=== PATIENT | female | born 1950 | race Caucasian/White ===

== ENCOUNTER → 2018-02-02 11:33 | Outpatient (CLI) | payer MEDICAID, SELFPAY ==
[2018-02-02 15:00] LABS: Anion Gap 6 (5-15); BUN 17 mg/dL (7-18); BUN/Creat Ratio 23.5 RATIO (10-20); Calcium,Total 8.7 mg/dL (8.5-10.1); Chloride 106 mmol/L (98-107); Cholesterol 189 mg/dL (200); Creatinine, Serum 0.72 mg/dL (0.55-1.02); EST Glomerular Filtration Rate 86 mL/min (>60); Est Glom Filt Rate - Afr Amer 104 mL/min (>60); Glucose 80 mg/dL (74-106); High Density Lipoprotein 93 mg/dL; Potassium 3.8 mmol/L (3.5-5.1); Sodium Level 140 mmol/L (136-145); Triglycerides 51 mg/dL; Very Low Density Lipoprotein 10 mg/dL (5-40)
== END ==
PROVIDERS: Family Provider Family Medicine; PCP Family Medicine; Visit Provider Family Medicine
DX: E03.9 Hypothyroidism, unspecified (principal); I10 Essential (primary) hypertension
CPT/HCPCS: 36415; 80048; 80061; 84443

== ENCOUNTER → 2018-08-06 11:08 | Outpatient (CLI) | payer MEDICARE, SELFPAY ==
[2018-08-06 14:53] LABS: Absolute Lymphocyte Count 1.11 X10^3/ul (0.83-4.51); Absolute Neutrophil Count 1.8 X10^3/uL (2.0-7.7); Basophil# 0.01 X10^3/uL; Basophil% 0.3 % (0-1); Eosinophil# 0.08 X10^3/uL; Eosinophils% 2.4 % (0-5); Hematocrit 40.4 % (37-47); Hemoglobin 12.2 g/dl (12.0-15.0); Lymphocyte # 1.11 X10^3/ul (4.0); Lymphocyte % 33.6 % (19-41); Mean Corp Hgb Conc 30.2 g/gl (32-36); Mean Corpuscular Hgb 29.6 pg (27.0-32.0); Mean Corpuscular Volume 98.1 fL (81-99); Mean Platelet Vol. 11.5 fl (6.2-12.0); Monocyte# 0.26 X10^3/uL; Monocyte% 7.9 % (0-10); Neutrophil # 1.84 X10^3/uL (2.7-7.7); Neutrophil % 55.8 % (47-70); Platelet Count 165 K/mm3 (150-450); RBC Distribution Width CV 13.3 % (11.6-14.6); RBC Distribution Width SD 47.2 fl (35.1-43.9); Red Blood Count 4.12 M/mm3 (4.2-5.4); White Blood Count 3.3 K/mm3 (4.4-11.0)
[2018-08-06 14:54] LABS: Differential Indicated SCAN CRITERIA MET; POSITIVE COUNT YES; POSITIVE DIFFERENTIAL NO; POSITIVE MORPHOLOGY YES
[2018-08-06 15:11] LABS: Platelet Estimate ADEQUATE (ADEQ)
[2018-08-06 15:12] LABS: Anion Gap 12 (5-15); BUN 11 mg/dL (7-18); BUN/Creat Ratio 15.6 RATIO (10-20); Calcium,Total 8.9 mg/dL (8.5-10.1); Chloride 105 mmol/L (98-107); Cholesterol 188 mg/dL (200); EST Glomerular Filtration Rate 88 mL/min (>60); Est Glom Filt Rate - Afr Amer 107 mL/min (>60); Free T3 2.8 pg/mL (2.18-3.98); Glucose 66 mg/dL (74-106); High Density Lipoprotein 103 mg/dL; Platelet Morphology LARGE; Potassium 4.1 mmol/L (3.5-5.1); Sodium Level 143 mmol/L (136-145); T4 Total, Thyroxin 11.6 ug/dL (4.8-13.9); Thyroid Stim Hormone (TSH) 2.86 uIU/mL (0.358-3.74); Triglycerides 83 mg/dL; Very Low Density Lipoprotein 17 mg/dL (5-40)
== END ==
PROVIDERS: Family Provider Family Medicine; PCP Family Medicine; Visit Provider Family Medicine
DX: E03.9 Hypothyroidism, unspecified (principal); I10 Essential (primary) hypertension; M06.9 Rheumatoid arthritis, unspecified
CPT/HCPCS: 36415; 80048; 80061; 84436; 84443; 84481; 85025

== ENCOUNTER → 2019-02-06 11:15 | Outpatient (CLI) | payer MEDICARE, SELFPAY ==
[2019-02-06 12:54] LABS: Anion Gap 5 (5-15); BUN 15 mg/dL (7-18); BUN/Creat Ratio 24.1 RATIO (10-20); Calcium,Total 9.3 mg/dL (8.5-10.1); Chloride 103 mmol/L (98-107); Cholesterol 183 mg/dL (200); Creatinine, Serum 0.62 mg/dL (0.55-1.02); EST Glomerular Filtration Rate 102 mL/min (>60); Est Glom Filt Rate - Afr Amer 123 mL/min (>60); Free T3 2.6 pg/mL (2.18-3.98); Glucose 79 mg/dL (74-106); High Density Lipoprotein 85 mg/dL; Sodium Level 140 mmol/L (136-145); T4 Total, Thyroxin 12.4 ug/dL (4.8-13.9); Thyroid Stim Hormone (TSH) 2.59 uIU/mL (0.358-3.74); Triglycerides 79 mg/dL; Very Low Density Lipoprotein 16 mg/dL (5-40)
== END ==
PROVIDERS: Family Provider Family Medicine; PCP Family Medicine; Visit Provider Family Medicine
DX: I10 Essential (primary) hypertension (principal); E03.9 Hypothyroidism, unspecified
CPT/HCPCS: 36415; 80048; 80061; 84436; 84443; 84481

== ENCOUNTER 2019-02-18 15:42 | Emergency (ER) | payer MEDICARE, SELFPAY ==
[2019-02-18 15:43] VITALS: BP 133/98; PULSE 101; RESP 18; TEMP 37.1; O2SAT 99; BMI 16.2
[2019-02-18 16:13] VITALS: BP 140/76; PULSE 92; RESP 21; O2SAT 100
--- NOTE | 2019-02-18 16:13 | RAD_ITS ---
STUDY: X-RAY CHEST REASON FOR EXAM: Female, 68 years old. Left-sided chest pain which increases with deep breathing and coughing. TECHNIQUE: Single AP portable view of the chest. COMPARISON: None. FINDINGS: There is hyperinflation of the lungs consistent with chronic obstructive lung disease (COPD). No focal mass or infiltrate. There is no demonstrated pleural abnormality. Normal size heart. Normal mediastinum and michael. Normal visualized pulmonary arteries. There is atherosclerotic calcification of the aortic arch with tortuosity. The thoracic spine is obscured by the mediastinum. Normal visualized ribs, clavicles, and shoulders. There is no demonstrated abnormality of the visualized soft tissue structures of the upper abdomen. RAD/Chest 1 View (Portable) IMPRESSION: COPD without acute cardiopulmonary disease. Electronically Signed: Iam Soto DO at 16:44 EDT Tel [phone], Service support ,
--- NOTE | 2019-02-18 16:13 | EKG12_ITS ---
Test Reason : CP Blood Pressure : / mmHG Vent. Rate : 098 BPM Atrial Rate : 098 BPM P-R Int : 138 ms QRS Dur : 094 ms QT Int : 356 ms P-R-T Axes : 075 -73 077 degrees QTc Int : 454 ms Normal sinus rhythm Right atrial enlargement Left axis deviation Cannot rule out Anterior infarct , age undetermined Abnormal ECG Confirmed by NORMA MONTE, JADE ([id number]), science editor JEANIE LIZARRAGA ([id number]) on 02/22/2019 6:20:42 AM Referred By: CASH/GARY Confirmed By:JADE GREEN MD
[2019-02-18] MEDS: Ketorolac 15 MG/ML Vial IV (16:33)
[2019-02-18] MEDS: Aspirin 81 MG TAB.CHEW 324 MG PO (16:33)
[2019-02-18 16:35] LABS: Absolute Neutrophil Count 8.9 X10^3/uL (2.0-7.7); Basophil# 0.01 X10^3/uL; Basophil% 0.1 % (0-1); Eosinophil# 0.03 X10^3/uL; Eosinophils% 0.3 % (0-5); Hematocrit 37.6 % (37-47); Hemoglobin 11.8 g/dl (12.0-15.0); Lymphocyte % 10.3 % (19-41); Mean Corp Hgb Conc 31.4 g/gl (32-36); Mean Corpuscular Hgb 29.4 pg (27.0-32.0); Mean Corpuscular Volume 93.5 fL (81-99); Mean Platelet Vol. 10.3 fl (6.2-12.0); Monocyte# 0.64 X10^3/uL; Neutrophil # 8.85 X10^3/uL (2.7-7.7); Neutrophil % 83.1 % (47-70); Platelet Count 177 K/mm3 (150-450); RBC Distribution Width CV 14.1 % (11.6-14.6); RBC Distribution Width SD 48.3 fl (35.1-43.9); Red Blood Count 4.02 M/mm3 (4.2-5.4); White Blood Count 10.7 K/mm3 (4.4-11.0)
[2019-02-18 16:40] LABS: POSITIVE COUNT NO; POSITIVE DIFFERENTIAL NO; POSITIVE MORPHOLOGY NO
[2019-02-18 16:48] LABS: Anion Gap 9 (5-15); BUN 19 mg/dL (7-18); Calcium,Total 8.8 mg/dL (8.5-10.1); Chloride 105 mmol/L (98-107); EST Glomerular Filtration Rate 66 mL/min (>60); Est Glom Filt Rate - Afr Amer 80 mL/min (>60); Estimated Creatinine Clearance 37.95 ml/min; Glucose 85 mg/dL (74-106); Potassium 3.7 mmol/L (3.5-5.1); Sodium Level 142 mmol/L (136-145)
--- NOTE | 2019-02-18 16:52 | CT_ITS ---
STUDY: CTA CHEST REASON FOR EXAM: Female, 68 years old. Left-sided chest pain and cough. RADIATION DOSAGE (If Supplied By Facility): CTDIvol = ( 3.41 ) mGy, DLP = ( 147.99 ) mGycm TECHNIQUE: The examination was performed with the intravenous administration of 100 IV Isovue 370. Post-processing of the angiographic images was performed, with multiplanar reformation and 3D reconstruction. Individualized dose optimization techniques were used for this CT. COMPARISON: Chest, February 18, 2019. FINDINGS: Normal enhancement of the main pulmonary artery and right and left pulmonary arteries. Normal enhancement of the bilateral peripheral pulmonary arteries. There is no demonstrated pulmonary embolism. Normal thoracic aorta and visualized great vessels. There is no demonstrated aortic dissection. Normal heart and pericardium. Nonspecific subcentimeter mediastinal lymphadenopathy. There is right hilar lymphadenopathy. Normal visualized trachea and bronchi. The lungs are hyper expanded, with flattening of the hemidiaphragms. There is diffuse emphysematous changes of the lungs. There is bilateral apical pleural scarring most marked on the left. Patchy nodular infiltrate in the posterior right upper lobe . More inferiorly bandlike density along the horizontal fissure which extends to the anterior pleural surface. There is a vague 3 mm nodular density in the right lower lobe on image 160 of series 2. There are vague linear densities laterally in the right lower lobe as well as dependent changes in the posterior costophrenic angle. There is vague linear densities in the left upper lobe at the level of the hilum with peribronchial thickening and bronchiectasis extending outward towards the anterior pleural surface. This same level there is a bandlike density extending from the hilum through the left lower lobe into the posterior lateral pleural surface. Atelectatic changes are seen in the lingula. There is no evidence of pleural effusion. The soft tissues of the chest wall appears somewhat cachectic. There are degenerative changes of thoracic spine. Normal visualized upper abdomen. CT/CTA Chest W/WO Contrast IMPRESSION: 1. No evidence of pulmonary embolus. 2. No evidence of aortic dissection or aneurysm. 3. Emphysematous changes lungs with areas of patchy nodular density bilaterally. The possibility of underlying malignancy cannot be ruled out. 4. Right hilar lymphadenopathy. There is nonspecific mediastinal lymph nodes also noted. 5. Degenerative changes on the lumbar spine. 6. Generalized cachexia. Electronically Signed: Iam Soto DO at 17:48 EDT Tel [phone], Service support ,
--- NOTE | 2019-02-18 17:49 | ED.DCSUM_ITS ---
- ER Visit Summary Date of Service: 02/18/19 Chief Complaint: Shortness of breath chest pain History of Present Illness: The patient is a 68 F with COPD presents for history of chest pain aching moderate left-sided. No fever chills she has a cough which is nonproductive. Pain is pleuritic. No radiation to her back or tearing sensation no radiation to her head neck or arms. No neurological symptoms Physical Examination: Not appear in acute distress. Moist mucous membranes, no obvious facial deformity No C-spine tenderness supple neck. Regular rate and rhythm without any obvious murmurs. Left-sided chest wall pain Coarse and slightly diminished lungs bilaterally speaking in full sentences without any obvious respiratory distress Abdomen soft and nontender no guarding or rebound Moves all extremities without any difficulty or pain. Skin does not show any obvious rashes or lesions, no trauma. Alert oriented ?3 with no gross focal deficit Emergency Department Course and Treatment: Patient has a normal work-up including PE, she has low risk for cardiac, she has nodules on CT, I will refer to pulmonology. I will place her on steroids Disposition: Discharge stable condition Impression: Pleuritic chest pain This note was generated with [employer] dictation software. It may contain incorrect words, spelling, and punctuation that were not noted in review of the chart prior to signing ED Disposition - Plan for ED Patient: Disposition: Home or Assisted Living Instructions: ED Chest Pain Pleurisy Prescriptions: Hydrocodone Bitart/Apap 5-325 [[place] 5MG-325MG] 1 tab PO Q4H PRN PRN 2 Days #10 tab PRN Reason: Pain Prednisone 40 mg PO DAILY #10 tab Referrals: Rob Corona MD [STAFF PHYSICIAN] - 1 Week
[2019-02-18 17:50] VITALS: BP 131/87; PULSE 87; RESP 32; O2SAT 100
[2019-02-18 18:19] VITALS: BP 129/75; PULSE 88; RESP 19; O2SAT 96
--- NOTE | 2019-02-18 18:19 | ED.RN ---
IV DC'ED, CATHETER INTACT, SMALL GAUZE DRESSING PLACED. DISCHARGE INSTRUCTIONS GIVEN TO AND REVIEWED WITH PATIENT, PATIENT DENIES QUESTIONS OR CONCERNS AND VOICES UNDERSTANDING OF DISCHARGE INSTRUCTIONS. PT AMBULATES OUT OF ROOM WITHOUT DIFFICULTY.
== END 2019-02-18 18:21 | disposition home or self-care (01) ==
PROVIDERS: Emergency Provider Emergency Medicine; Family Provider Family Medicine; PCP Family Medicine
DX: R07.89 Other chest pain (principal); J44.9 Chronic obstructive pulmonary disease, unspecified; Z79.899 Other long term (current) drug therapy
CPT/HCPCS: 71045; 71275; 80048; 84484; 85025; 93005; 96374; 99285; Q9967

== ENCOUNTER → 2019-03-20 09:45 | Outpatient (CLI) | payer MEDICARE, SELFPAY ==
[2019-03-07 13:18] VITALS: BMI 14.9
--- NOTE | 2019-03-20 12:45 | PFT ---
INTRODUCTION: The patient is a 68-year-old female that presents for pulmonary function studies secondary to a diagnosis of bronchitis. Respiratory therapy reports good patient effort. Bronchodilators were used during testing. INTERPRETATION: Forced expiration spirometry demonstrates no evidence of a large airways obstructive ventilatory defect. There was no significant response to aerosolized bronchodilators, based upon strict ATS criteria. Spirograms plateau normally. Body plethysmography was performed and reveals lung volumes to be within normal limits. Diffusing capacity by single breath CO is also within normal limits at 83% of predicted. IMPRESSION: Normal spirometry, lung volumes and diffusing capacity.
== END ==
PROVIDERS: Family Provider Family Medicine; PCP Family Medicine; Referring Provider Internal Medicine Critical Care Medicine; Visit Provider Internal Medicine Critical Care Medicine
DX: J47.9 Bronchiectasis, uncomplicated (principal)
CPT/HCPCS: 94060; 94726; 94729

== ENCOUNTER → 2019-04-10 11:00 | Outpatient (CLI) | payer MEDICARE, SELFPAY ==
[2019-04-10 10:06] VITALS: BMI 15.5
== END ==
PROVIDERS: Family Provider Family Medicine; PCP Family Medicine; Referring Provider Nurse Practitioner Acute Care; Visit Provider Nurse Practitioner Acute Care
DX: M06.9 Rheumatoid arthritis, unspecified (principal)
CPT/HCPCS: 94667

== ENCOUNTER → 2019-04-12 16:53 | Outpatient (CLI) | payer MEDICARE, SELFPAY ==
[2019-03-07 13:18] VITALS: BMI 14.9
[2019-04-10 10:06] VITALS: BMI 15.5
--- NOTE | 2019-04-12 16:55 | CT_ITS ---
HISTORY:LUNG NODULE, RECENT PNEUMONIA DECEMBER 2018. HILAR ADENOPATHY LUNG NODULE, RECENT PNEUMONIA DECEMBER 2018. HILAR ADENOPATHY CT Chest W/ Contrast TECHNIQUE: Helically acquired images were obtained of the chest following 70 Isovue 300 IV contrast. A radiation dose optimization technique was used for this scan. COMPARISON: CTA of the chest obtained on February 18, 2019 FINDINGS: # of images incl. paperwork: [id number] PULMONARY ARTERIES: There is no central pulmonary embolism although this study was not performed with the pulmonary embolism protocol. AORTA/AORTIC ARCH: Unremarkable. HEART/PERICARDIUM: Unremarkable. ADENOPATHY: There are subcentimeter precarinal and carinal lymph nodes that were present on the prior study and similar. Right hilar adenopathy similar to prior study. Borderline left hilar adenopathy increased when compared to prior study. No axillary adenopathy THYROID: The right lobe of the thyroid is enlarged when compared to the left similar prior study LUNG PARENCHYMA: Diffuse emphysematous changes of the lungs are again noted. Bilateral apical scarring greater on the left unchanged from prior study. Pleural thickening is again noted along the right minor fissure but slightly improved when compared to prior study. Minimal thickening is also seen along the major fissure on the right which is increased on today's study measuring approximately 1.3 cm. This is seen on axial image 45 series 2 There is atelectasis seen within the right middle lobe as well as the lingula. The nodularity that was seen in the right lower lobe on the prior study is increased on today's study. This may represent focal atelectasis or consolidation. This is seen best on axial image 67 series 2. There is also increased atelectasis/infiltrate seen within the anterior aspect of the lingula and inferior anterior upper lobe seen on axial image 80 series 2 which has increased when compared to prior study. Just posterior to this area on the same image there is a linear band of thickening and nodularity that was also not seen on the prior study seen extending from 76-89 series 2 . Minimal nodularity pleural-based seen at the superior segment of the right lower lobe in sagittal image 90 series 601 also not seen on the prior study. Patchy infiltrate is seen within the left lower lobe not seen on the prior study on axial image 109 series 2 and atelectasis in the right lower lobe PLEURAL EFFUSION: Unremarkable. PNEUMOTHORAX: Unremarkable. UPPER ABDOMEN: Unremarkable. OSSEOUS STRUCTURES: No acute osseous abnormality CT/Chest WITH Contrast IMPRESSION: Subcentimeter mediastinal lymph nodes persist. Right hilar adenopathy is similar. There are is also subcentimeter left hilar lymph node increased from prior study There is atelectasis in the right middle lobe as well as the lingula. The nodular density seen within the right lower lobe on the prior study is increased in size on today's study and may represent focal atelectasis or consolidation. Focal atelectasis or infiltrate are also seen within the anterior aspect of the lingula and inferior anterior upper lobe as well as a linear band of thickening and nodularity seen within the left lingula that has increased when compared to prior study. There is minimal nodularity there is pleural-based seen at the superior segment of the right lower lobe not seen on the prior study. Patchy infiltrate left lower lobe also not seen on the prior study with atelectasis in the right lower lobe Consider PET/CT for further evaluation if clinically indicated Emphysematous changes as discussed Individualized dose optimization techniques were used for this CT. at 2305 Reported and signed by: Karen Elliott DO Electronically Signed: Karen Elliott DO at 23:04 EDT Tel , Service support ,
[2019-04-12 17:20] LABS: CREATININE FINGERSTICK 0.8 mg/dL (0.55-1.02); EGFR FINGERSTICK > 60.0000 mL/min (>60)
== END ==
PROVIDERS: Family Provider Family Medicine; PCP Family Medicine; Referring Provider Internal Medicine Critical Care Medicine; Visit Provider Internal Medicine Critical Care Medicine
DX: R91.1 Solitary pulmonary nodule (principal); R93.89 Abnormal findings on diagnostic imaging of other specified body structures
CPT/HCPCS: 71260; Q9967

== ENCOUNTER → 2019-05-29 14:58 | Outpatient (CLI) | payer MEDICARE, SELFPAY ==
[2019-04-10 10:06] VITALS: BMI 15.5
[2019-05-29 17:28] LABS: Absolute Lymphocyte Count 1.16 X10^3/uL (0.83-4.51); Absolute Neutrophil Count 9.5 X10^3/uL (2.0-7.7); Basophil# 0.03 X10^3/uL; Basophil% 0.3 % (0-1); Eosinophil# 0.04 X10^3/uL; Eosinophils% 0.4 % (0-5); Hematocrit 39.7 % (37-47); Hemoglobin 11.7 g/dL (12.0-15.0); Lymphocyte # 1.16 X10^3/ul (4.0); Lymphocyte % 10.2 % (19-41); Mean Corp Hgb Conc 29.5 g/dL (32-36); Mean Corpuscular Hgb 26.5 pg (27.0-32.0); Monocyte# 0.65 X10^3/uL; Monocyte% 5.7 % (0-10); NRBC Flagged by Analyzer 0 % (0-5); Neutrophil # 9.51 X10^3/uL (2.7-7.7); Neutrophil % 83.1 % (47-70); Platelet Count 264 K/mm3 (150-450); RBC Distribution Width CV 13.7 % (11.6-14.6); RBC Distribution Width SD 45.6 fl (35.1-43.9); Red Blood Count 4.41 M/mm3 (4.2-5.4); White Blood Count 11.4 K/mm3 (4.4-11.0)
[2019-05-29 17:42] LABS: Erythrocyte Sedimentation Rate 75 mm/hr (0-30)
[2019-05-29 17:52] LABS: ALB/GLOB Ratio 0.7 RATIO (0.9-2.4); AST(SGOT) 24 U/L (15-37); Alanine Aminotransfer ALT/SGPT 18 U/L (13-56); Albumin, Serum 3.3 g/dL (3.2-5.0); Alkaline Phosphatase 136 U/L (45-117); Anion Gap 9 (5-15); BUN 16 mg/dL (7-18); BUN/Creat Ratio 29.1 RATIO (10-20); Calcium,Total 9.3 mg/dL (8.5-10.1); Chloride 105 mmol/L (98-107); Creatinine, Serum 0.55 mg/dL (0.55-1.02); EST Glomerular Filtration Rate 118 mL/min (>60); Est Glom Filt Rate - Afr Amer 142 mL/min (>60); Globulin 4.6 g/dL (2.2-4.2); Glucose 47 mg/dL (74-106); Potassium 3.8 mmol/L (3.5-5.1); Protein, Total 7.9 g/dL (6.4-8.2); Rheumatoid Factor < 10.0 IU/mL (<15); Sodium Level 141 mmol/L (136-145)
[2019-05-30 12:57] LABS: Hepatitis B Surface Antibody Non-Reactive; Hepatitis B Surface Antigen Non-Reactive (Nonreactive); Hepatitis C Antibody Non-Reactive (Nonreactive)
[2019-06-03 13:34] LABS: ANTINUCLEAR ANTIBODIES DIRECT Negative (Negative)
[2019-06-05 13:00] LABS: CCP IgG Antibodies 10 units (0-19); HLA B27 Negative (.); Hepatitis B Core AB IgM Negative (Negative)
== END ==
PROVIDERS: Family Provider Family Medicine; PCP Family Medicine; Referring Provider Family Medicine; Visit Provider Internal Medicine Rheumatology
DX: M06.4 Inflammatory polyarthropathy (principal); M79.7 Fibromyalgia; M15.9 Polyosteoarthritis, unspecified; Q66.7 Congenital pes cavus
CPT/HCPCS: 36415; 80053; 81374; 85025; 85652; 86038; 86140; 86200; 86431; 86705; 86706; 86803; 87340

== ENCOUNTER → 2019-05-30 09:56 | Outpatient (CLI) | payer MEDICARE, SELFPAY ==
[2019-04-10 10:06] VITALS: BMI 15.5
--- NOTE | 2019-05-30 09:59 | RAD_ITS ---
STUDY: X-RAY - LEFT HAND REASON FOR EXAM: Female, 68 years old. Inflammatory polyarthropathy TECHNIQUE: 3 view(s) of the hand. COMPARISON: None. FINDINGS: Generalized narrowing of the radiocarpal joint without erosive changes. Normal distal radioulnar joint. Normal visualized carpal bones. There is degenerative joint disease of the scaphotrapezium / trapezoid articulation. The remainder of the carpal articulations are normal. There is degenerative arthrosis of the carpometacarpal articulation of the thumb with lateral subluxation of the first metacarpus. Generalized narrowing of the second through the fifth carpometacarpal joints. Some degenerative cyst formation. Normal metacarpi. There is degenerative arthrosis of the metacarpophalangeal (MCP) joints. There is degenerative arthrosis of the interphalangeal joint of the thumb with articular joint space narrowing. Normal proximal and distal phalanges of the thumb. There is degenerative arthrosis of the metacarpophalangeal (MCP) joints. Ankylosis of the proximal interphalangeal joints of the fifth and fourth fingers. Ankylosis of the distal interphalangeal joints of the second and third fingers. Extreme narrowing and marginal osteophytosis of the interphalangeal joint of the thumb, the distal interphalangeal joints of the fifth and fourth fingers and the proximal interphalangeal joints of the second and third fingers. Generalized prominence of the soft tissues primarily around the interphalangeal joints. RAD/Hand Min 3 Views IMPRESSION: Primarily degenerative joint features of the radiocarpal joint, scaphoid trapezium/trapezoid articulation, carpometacarpal joints, metacarpophalangeal joints and interphalangeal joints. Most severely affected joints are the interphalangeal joints noting ankylosis of the proximal interphalangeal joints of the fourth and fifth fingers and the distal interphalangeal joints of the second and third fingers. Extreme narrowing and marginal changes of the remaining interphalangeal joints. Severe degenerative arthrosis of the first carpometacarpal joint with mild subluxation. Electronically Signed: Ceci Ceja MD at 23:58 EDT , Service support ,
--- NOTE | 2019-05-30 09:59 | RAD_ITS ---
STUDY: X-RAY - PELVIS REASON FOR EXAM: Female, 68 years old. Inflammatory polyarthropathy. TECHNIQUE: One view of the pelvis was obtained. COMPARISON: None. FINDINGS: There is a non-specific bowel gas pattern. Normal visualized soft tissue structures. There are degenerative changes of the lumbar spine. Normal bilateral iliac wings, sacroiliac joints and visualized sacrum. Normal visualized bilateral superior and inferior pubic rami. Normal pubic symphysis. Normal ischial tuberosities. Normal visualized right femoral head. Normal right acetabulum. There is mild articular joint space narrowing of the right hip. Normal visualized left femoral head. Normal left acetabulum. There is mild articular joint space narrowing of the left hip. RAD/Pelvis 1 or 2 Views IMPRESSION: Mild degenerative changes bilateral hips. There is no acute fracture or dislocation. Electronically Signed: Iam Soto DO at 21:08 EDT Tel [phone], Service support ,
--- NOTE | 2019-05-30 09:59 | RAD_ITS ---
STUDY: X-RAY - RIGHT HAND REASON FOR EXAM: Female, 68 years old. Inflammatory polyarthropathy. TECHNIQUE: 3 view(s) of the hand. COMPARISON: None. FINDINGS: There is joint space narrowing of the radiocarpal articulation consistent with degenerative arthrosis. Normal distal radioulnar joint. Normal visualized carpal bones. There is degenerative joint disease of the scaphotrapezium / trapezoid articulation. The remainder of the carpal articulations are normal. There is degenerative arthrosis of the carpometacarpal (CMC) articulation of the thumb. Normal second through fifth carpometacarpal joints. Normal metacarpi. There is degenerative arthrosis of the first metacarpophalangeal (MCP) joint. There is degenerative arthrosis of the interphalangeal joint of the thumb with articular joint space narrowing. Normal proximal and distal phalanges of the thumb. Normal metacarpophalangeal joints of the second through fifth fingers. There is diffuse articular joint space narrowing of the proximal and distal interphalangeal joints of the second through fifth fingers. There is fusion of the second proximal interphalangeal joint. There is marked rotated to be erosive changes at the remainder of the interphalangeal joint. Normal phalanges of the second through fifth fingers. There is soft tissue swelling about the joints. RAD/Hand Min 3 Views IMPRESSION: Arthritic changes the right hand as described above. Electronically Signed: Iam Soto DO at 21:07 EDT Tel [phone], Service support ,
== END ==
PROVIDERS: Family Provider Family Medicine; PCP Family Medicine; Referring Provider Internal Medicine Rheumatology; Visit Provider Internal Medicine Rheumatology
DX: M06.4 Inflammatory polyarthropathy (principal); M19.042 Primary osteoarthritis, left hand; M19.041 Primary osteoarthritis, right hand; M79.7 Fibromyalgia; K21.9 Gastro-esophageal reflux disease without esophagitis; Q66.7 Congenital pes cavus; I10 Essential (primary) hypertension; E03.9 Hypothyroidism, unspecified; G43.909 Migraine, unspecified, not intractable, without status migrainosus
CPT/HCPCS: 72170; 73130

== ENCOUNTER → 2019-08-29 11:50 | Outpatient (CLI) | payer MEDICARE, SELFPAY ==
[2019-07-17 10:06] VITALS: BMI 15.5
[2019-08-29 14:12] LABS: Absolute Neutrophil Count 4.5 X10^3/uL (2.0-7.7); Basophil# 0.01 X10^3/uL; Basophil% 0.2 % (0-1); Eosinophil# 0.03 X10^3/uL; Eosinophils% 0.5 % (0-5); Hematocrit 37.5 % (37-47); Hemoglobin 11.3 g/dL (12.0-15.0); Lymphocyte % 15.4 % (19-41); Mean Corp Hgb Conc 30.1 g/dL (32-36); Mean Corpuscular Hgb 27.6 pg (27.0-32.0); Mean Corpuscular Volume 91.7 fL (81-99); Monocyte# 0.42 X10^3/uL; Monocyte% 7.2 % (0-10); NRBC Flagged by Analyzer 0 % (0-5); Neutrophil # 4.46 X10^3/uL (2.7-7.7); Neutrophil % 76.4 % (47-70); Platelet Count 307 K/mm3 (150-450); RBC Distribution Width CV 14.8 % (11.6-14.6); RBC Distribution Width SD 49.7 fl (35.1-43.9); Red Blood Count 4.09 M/mm3 (4.2-5.4); White Blood Count 5.8 K/mm3 (4.4-11.0)
[2019-08-29 14:35] LABS: ALB/GLOB Ratio 0.6 RATIO (0.9-2.4); AST(SGOT) 18 U/L (15-37); Alanine Aminotransfer ALT/SGPT 20 U/L (13-56); Albumin, Serum 3.1 g/dL (3.2-5.0); Alkaline Phosphatase 113 U/L (45-117); Anion Gap 5 (5-15); BUN 16 mg/dL (7-18); BUN/Creat Ratio 27.8 RATIO (10-20); Calcium,Total 9.1 mg/dL (8.5-10.1); Chloride 104 mmol/L (98-107); Creatinine, Serum 0.58 mg/dL (0.55-1.02); EST Glomerular Filtration Rate 111 mL/min (>60); Est Glom Filt Rate - Afr Amer 135 mL/min (>60); Globulin 4.8 g/dL (2.2-4.2); Glucose 88 mg/dL (74-106); Potassium 3.4 mmol/L (3.5-5.1); Protein, Total 7.9 g/dL (6.4-8.2); Sodium Level 141 mmol/L (136-145)
== END ==
PROVIDERS: Family Provider Family Medicine; PCP Family Medicine; Referring Provider Internal Medicine Rheumatology; Visit Provider Internal Medicine Rheumatology
DX: M06.4 Inflammatory polyarthropathy (principal); M79.7 Fibromyalgia; M15.9 Polyosteoarthritis, unspecified; Q66.70 Congenital pes cavus, unspecified foot; Z79.899 Other long term (current) drug therapy
CPT/HCPCS: 36415; 80053; 85025

== ENCOUNTER → 2019-09-16 13:30 | Outpatient (CLI) | payer MEDICARE, SELFPAY ==
[2019-07-17 10:06] VITALS: BMI 15.5
[2019-09-16 17:15] LABS: Anion Gap 5 (5-15); BUN 9 mg/dL (7-18); BUN/Creat Ratio 15.1 RATIO (10-20); Chloride 104 mmol/L (98-107); EST Glomerular Filtration Rate 107 mL/min (>60); Est Glom Filt Rate - Afr Amer 130 mL/min (>60); Glucose 68 mg/dL (74-106); Potassium 3.7 mmol/L (3.5-5.1); Sodium Level 140 mmol/L (136-145); Thyroid Stim Hormone (TSH) 2.35 uIU/mL (0.358-3.74)
== END ==
PROVIDERS: Family Provider Family Medicine; PCP Family Medicine; Referring Provider Family Medicine; Visit Provider Family Medicine
DX: E03.9 Hypothyroidism, unspecified (principal); I10 Essential (primary) hypertension
CPT/HCPCS: 36415; 80048; 84443

== ENCOUNTER → 2019-12-06 14:58 | Outpatient (CLI) | payer MEDICARE, SELFPAY ==
[2019-07-17 10:06] VITALS: BMI 15.5
[2019-12-06 17:43] LABS: ALB/GLOB Ratio 0.8 RATIO (0.9-2.4); AST(SGOT) 18 U/L (15-37); Absolute Lymphocyte Count 1.45 X10^3/uL (0.83-4.51); Absolute Neutrophil Count 4.7 X10^3/uL (2.0-7.7); Alanine Aminotransfer ALT/SGPT 17 U/L (13-56); Albumin, Serum 3.8 g/dL (3.2-5.0); Alkaline Phosphatase 116 U/L (45-117); Anion Gap 6 (5-15); BUN 14 mg/dL (7-18); BUN/Creat Ratio 20.8 RATIO (10-20); Basophil# 0.02 X10^3/uL; Basophil% 0.3 % (0-1); Chloride 102 mmol/L (98-107); Creatinine, Serum 0.67 mg/dL (0.55-1.02); EST Glomerular Filtration Rate 93 mL/min (>60); Eosinophil# 0.06 X10^3/uL; Eosinophils% 0.9 % (0-5); Est Glom Filt Rate - Afr Amer 112 mL/min (>60); Globulin 4.6 g/dL (2.2-4.2); Glucose 82 mg/dL (74-106); Hemoglobin 12.3 g/dL (12.0-15.0); Lymphocyte # 1.45 X10^3/ul (4.0); Lymphocyte % 21.5 % (19-41); Mean Corpuscular Hgb 28.9 pg (27.0-32.0); Mean Corpuscular Volume 96.2 fL (81-99); Mean Platelet Vol. 10.9 fl (6.2-12.0); Monocyte# 0.52 X10^3/uL; Monocyte% 7.7 % (0-10); NRBC Flagged by Analyzer 0 % (0-5); Neutrophil # 4.69 X10^3/uL (2.7-7.7); Neutrophil % 69.5 % (47-70); Platelet Count 201 K/mm3 (150-450); Potassium 3.5 mmol/L (3.5-5.1); Protein, Total 8.4 g/dL (6.4-8.2); RBC Distribution Width CV 14.4 % (11.6-14.6); RBC Distribution Width SD 50.1 fl (35.1-43.9); Red Blood Count 4.26 M/mm3 (4.2-5.4); Sodium Level 138 mmol/L (136-145); White Blood Count 6.8 K/mm3 (4.4-11.0)
== END ==
PROVIDERS: PCP Family Medicine; Referring Provider Internal Medicine Rheumatology; Visit Provider Internal Medicine Rheumatology
DX: M06.4 Inflammatory polyarthropathy (principal); M79.7 Fibromyalgia; M15.9 Polyosteoarthritis, unspecified; Q66.70 Congenital pes cavus, unspecified foot; K21.9 Gastro-esophageal reflux disease without esophagitis; I10 Essential (primary) hypertension; E03.9 Hypothyroidism, unspecified; G43.909 Migraine, unspecified, not intractable, without status migrainosus; M72.0 Palmar fascial fibromatosis [Dupuytren]; Z79.899 Other long term (current) drug therapy
CPT/HCPCS: 36415; 80053; 85025

== ENCOUNTER → 2020-02-19 11:11 | Outpatient (CLI) | payer MEDICARE, SELFPAY ==
[2019-07-17 10:06] VITALS: BMI 15.5
[2020-02-19 12:42] LABS: Absolute Lymphocyte Count 1.13 X10^3/uL (0.83-4.51); Absolute Neutrophil Count 2.9 X10^3/uL (2.0-7.7); Basophil# 0.02 X10^3/uL; Basophil% 0.5 % (0-1); Eosinophil# 0.06 X10^3/uL; Eosinophils% 1.4 % (0-5); Hematocrit 39.8 % (37-47); Hemoglobin 12.2 g/dL (12.0-15.0); Lymphocyte # 1.13 X10^3/ul (4.0); Lymphocyte % 25.7 % (19-41); Mean Corp Hgb Conc 30.7 g/dL (32-36); Mean Corpuscular Hgb 29.3 pg (27.0-32.0); Mean Corpuscular Volume 95.7 fL (81-99); Mean Platelet Vol. 10.5 fl (6.2-12.0); Monocyte% 6.8 % (0-10); NRBC Flagged by Analyzer 0 % (0-5); Neutrophil # 2.87 X10^3/uL (2.7-7.7); Neutrophil % 65.4 % (47-70); Platelet Count 220 K/mm3 (150-450); RBC Distribution Width CV 14.4 % (11.6-14.6); RBC Distribution Width SD 49.5 fl (35.1-43.9); Red Blood Count 4.16 M/mm3 (4.2-5.4); White Blood Count 4.4 K/mm3 (4.4-11.0)
[2020-02-19 13:11] LABS: ALB/GLOB Ratio 0.8 RATIO (0.9-2.4); AST(SGOT) 15 U/L (15-37); Alanine Aminotransfer ALT/SGPT 17 U/L (13-56); Albumin, Serum 3.4 g/dL (3.2-5.0); Alkaline Phosphatase 110 U/L (45-117); Anion Gap 6 (5-15); BUN 14 mg/dL (7-18); BUN/Creat Ratio 23.9 RATIO (10-20); Chloride 102 mmol/L (98-107); Creatinine, Serum 0.58 mg/dL (0.55-1.02); EST Glomerular Filtration Rate 109 mL/min (>60); Est Glom Filt Rate - Afr Amer 132 mL/min (>60); Globulin 4.5 g/dL (2.2-4.2); Glucose 71 mg/dL (74-106); Potassium 3.6 mmol/L (3.5-5.1); Protein, Total 7.9 g/dL (6.4-8.2); Sodium Level 140 mmol/L (136-145)
== END ==
PROVIDERS: PCP Family Medicine; Referring Provider Internal Medicine Rheumatology; Visit Provider Internal Medicine Rheumatology
DX: M06.4 Inflammatory polyarthropathy (principal); M79.7 Fibromyalgia; M15.9 Polyosteoarthritis, unspecified; Q66.70 Congenital pes cavus, unspecified foot; K21.9 Gastro-esophageal reflux disease without esophagitis; I10 Essential (primary) hypertension; E03.9 Hypothyroidism, unspecified; G43.909 Migraine, unspecified, not intractable, without status migrainosus; M72.0 Palmar fascial fibromatosis [Dupuytren]; Z79.899 Other long term (current) drug therapy
CPT/HCPCS: 36415; 80053; 85025

== ENCOUNTER → 2020-03-11 11:55 | Outpatient (CLI) | payer MEDICARE, SELFPAY ==
[2019-07-17 10:06] VITALS: BMI 15.5
[2020-03-11 16:29] LABS: Free T3 2.6 pg/mL (2.18-3.98); T4 Total, Thyroxin 11.7 ug/dL (4.8-13.9); Thyroid Stim Hormone (TSH) 3.74 uIU/mL (0.358-3.74)
== END ==
PROVIDERS: PCP Family Medicine; Visit Provider Family Medicine
DX: E03.9 Hypothyroidism, unspecified (principal)
CPT/HCPCS: 36415; 84436; 84443; 84481

== ENCOUNTER 2020-04-11 11:14 | Emergency (ER) | payer MEDICARE, SELFPAY ==
[2019-07-17 10:06] VITALS: BMI 15.5
[2020-04-11 11:15] VITALS: BP 126/85; PULSE 94; PULSE 98; RESP 17; TEMP 37; O2SAT 95; O2SAT 97; BMI 15.8
--- NOTE | 2020-04-11 11:42 | ED.VISSUMM ---
- ER Visit Summary Date of Service: 04/11/20 Chief Complaint: Cough, shortness of breath, and right-sided chest pain History of Present Illness: The patient is a 69 F who presents with cough, shortness of breath, and right-sided chest pain that is been constant for the past 6 days. Patient states her pain became worse last night. Patient states it is localized to the right lower chest. Patient states it is worse with cough and deep breathing. Patient describes as aching. Patient states it feels similar to prior episodes of pneumonia. Patient states she is coughing up some yellow sputum. Patient denies any fevers or chills. Physical Examination: Vital signs are stable. Patient is afebrile. Patient is in no acute distress. Oral mucosa is pink and moist. Neck is supple. Trachea is midline. There is no JVD. Heart was regular rate and rhythm. Lungs were diminished bilaterally. There are few rhonchi in the right base. Abdomen is soft. Bowel sounds are normal. There is no tenderness. Cranial nerves II through XII are intact. There are no focal motor or sensory deficits noted. Extremities are intact. There is no calf tenderness or edema. Test Results: CBC and comprehensive metabolic profile within normal limits. Chest x-ray shows patchy infiltrates worse in the right lower lung. There are also COPD changes. These were interpreted by the radiologist and reviewed by myself. Emergency Department Course and Treatment: Patient was started on Levaquin. Patient was given her first dose here. On reevaluation the patient's son states that his sister is a nurse and was exposed to a COVID patient. Because of this, a COVID swab was obtained and was sent out for testing. Patient was instructed to follow-up with her primary care physician in 5 to 7 days. Patient understood and was agreeable with the plan. All questions were answered. Disposition: Discharge home Impression: Right lower lobe pneumonia This note was generated with [employer] dictation software. It may contain incorrect words, spelling, and punctuation that were not noted in review of the chart prior to signing ED Disposition - Plan for ED Patient: Disposition: Home or Assisted Living Diagnosis: Right lower lobe pneumonia Instructions: ED PNEUMONITIS Adult Prescriptions: Levofloxacin [Levaquin] 750 mg PO DAILY #6 tab Transmission Status: Pending to [id number] Referrals: Bobby Duckworth MD [Primary Care Provider] - 5-7 Days
--- NOTE | 2020-04-11 11:55 | RAD_ITS ---
STUDY: X-RAY CHEST REASON FOR EXAM: Female, 69 years old. Cough, SOB, loss of taste and smell, right sided chest wall pain TECHNIQUE: Single AP portable view of the chest. COMPARISON: 02-18-2019 FINDINGS: Patchy right mid and lower lung interstitial infiltrates more prominent on the right side. There are atelectatic changes in the region and scarring. The lungs are hyperinflated with COPD changes. There is no demonstrated pleural abnormality. Normal size heart. Normal mediastinum and michael. Normal visualized pulmonary arteries. Normal visualized aortic arch and descending thoracic aorta. Normal visualized thoracic spine. There are degenerative changes in the right shoulder. There is no demonstrated abnormality of the visualized soft tissue structures of the upper abdomen. RAD/Chest 1 View (Portable) IMPRESSION: 1. Patchy infiltrates worse in the right lower lung. Interstitial or viral pneumonitis cannot be excluded. 2. COPD changes and scarring. Electronically Signed: Navid Clemente MD at 12:27 EDT Tel , Service support ,
[2020-04-11 12:13] LABS: Absolute Lymphocyte Count 0.56 X10^3/uL (0.83-4.51); Absolute Neutrophil Count 12.3 X10^3/uL (2.0-7.7); Basophil# 0.02 X10^3/uL; Basophil% 0.1 % (0-1); Eosinophil# 0.01 X10^3/uL; Eosinophils% 0.1 % (0-5); Hematocrit 40.5 % (37-47); Hemoglobin 12.5 g/dL (12.0-15.0); Lymphocyte # 0.56 X10^3/ul (4.0); Lymphocyte % 4.1 % (19-41); Mean Corp Hgb Conc 30.9 g/dL (32-36); Mean Corpuscular Hgb 29.3 pg (27.0-32.0); Mean Corpuscular Volume 95.1 fL (81-99); Mean Platelet Vol. 10.2 fl (6.2-12.0); Monocyte# 0.82 X10^3/uL; NRBC Flagged by Analyzer 0 % (0-5); Neutrophil # 12.32 X10^3/uL (2.7-7.7); Neutrophil % 89.4 % (47-70); POSITIVE DIFFERENTIAL YES; Platelet Count 203 K/mm3 (150-450); RBC Distribution Width CV 14.4 % (11.6-14.6); RBC Distribution Width SD 49.6 fl (35.1-43.9); Red Blood Count 4.26 M/mm3 (4.2-5.4); White Blood Count 13.8 K/mm3 (4.4-11.0)
[2020-04-11 12:14] LABS: Differential Indicated SCAN CRITERIA MET
[2020-04-11 12:21] LABS: ALB/GLOB Ratio 0.7 RATIO (0.9-2.4); AST(SGOT) 20 U/L (15-37); Alanine Aminotransfer ALT/SGPT 17 U/L (13-56); Albumin, Serum 3.4 g/dL (3.2-5.0); Alkaline Phosphatase 113 U/L (45-117); Anion Gap 5 (5-15); BUN 8 mg/dL (7-18); BUN/Creat Ratio 12.7 RATIO (10-20); Calcium,Total 8.9 mg/dL (8.5-10.1); Chloride 101 mmol/L (98-107); Creatinine, Serum 0.63 mg/dL (0.55-1.02); EST Glomerular Filtration Rate 100 mL/min (>60); Est Glom Filt Rate - Afr Amer 122 mL/min (>60); Estimated Creatinine Clearance 32.83 ml/min; Globulin 4.9 g/dL (2.2-4.2); Glucose 90 mg/dL (74-106); Potassium 4.4 mmol/L (3.5-5.1); Protein, Total 8.3 g/dL (6.4-8.2); Sodium Level 137 mmol/L (136-145)
[2020-04-11 12:55] LABS: Hypochromasia RARE; Platelet Estimate ADEQUATE (ADEQ)
[2020-04-11 13:37] VITALS: BP 128/64; PULSE 96; RESP 18; O2SAT 96
[2020-04-11] MEDS: levoFLOXacin 750 MG Tablet PO (13:37)
== END 2020-04-11 13:49 | disposition home or self-care (01) ==
PROVIDERS: Emergency Provider Emergency Medicine; PCP Family Medicine
DX: J44.0 Chronic obstructive pulmonary disease with (acute) lower respiratory infection (principal); J18.9 Pneumonia, unspecified organism; E03.9 Hypothyroidism, unspecified; Z87.01 Personal history of pneumonia (recurrent); Z20.828 Contact with and (suspected) exposure to other viral communicable diseases
CPT/HCPCS: 71045; 80053; 85025; 87635; 94799; 99285; A4216; U0003

== ENCOUNTER → 2020-05-27 14:26 | Outpatient (CLI) | payer MEDICARE, SELFPAY ==
[2020-05-27 19:02] LABS: Absolute Lymphocyte Count 1.49 X10^3/uL (0.83-4.51); Absolute Neutrophil Count 2.6 X10^3/uL (2.0-7.7); Basophil# 0.03 X10^3/uL; Basophil% 0.6 % (0-1); Eosinophils% 2.1 % (0-5); Hematocrit 40.4 % (37-47); Hemoglobin 12.3 g/dL (12.0-15.0); Lymphocyte # 1.49 X10^3/ul (4.0); Mean Corp Hgb Conc 30.4 g/dL (32-36); Mean Corpuscular Hgb 28.8 pg (27.0-32.0); Mean Corpuscular Volume 94.6 fL (81-99); Mean Platelet Vol. 10.9 fl (6.2-12.0); Monocyte# 0.43 X10^3/uL; Monocyte% 9.2 % (0-10); NRBC Flagged by Analyzer 0 % (0-5); Neutrophil % 55.9 % (47-70); Platelet Count 181 K/mm3 (150-450); RBC Distribution Width CV 14.4 % (11.6-14.6); RBC Distribution Width SD 49.9 fl (35.1-43.9); Red Blood Count 4.27 M/mm3 (4.2-5.4); White Blood Count 4.7 K/mm3 (4.4-11.0)
[2020-05-27 19:06] LABS: AST(SGOT) 19 U/L (15-37); Alanine Aminotransfer ALT/SGPT 19 U/L (13-56); Albumin, Serum 3.9 g/dL (3.2-5.0); Alkaline Phosphatase 105 U/L (45-117); Anion Gap 3 (5-15); BUN 13 mg/dL (7-18); BUN/Creat Ratio 25.8 RATIO (10-20); Chloride 105 mmol/L (98-107); EST Glomerular Filtration Rate 129 mL/min (>60); Est Glom Filt Rate - Afr Amer 157 mL/min (>60); Glucose 76 mg/dL (74-106); Potassium 3.4 mmol/L (3.5-5.1); Protein, Total 7.9 g/dL (6.4-8.2); Sodium Level 140 mmol/L (136-145)
== END ==
PROVIDERS: PCP Family Medicine; Referring Provider Internal Medicine Rheumatology; Visit Provider Internal Medicine Rheumatology
DX: M06.4 Inflammatory polyarthropathy (principal); M79.7 Fibromyalgia; M15.9 Polyosteoarthritis, unspecified; Q66.70 Congenital pes cavus, unspecified foot; K21.9 Gastro-esophageal reflux disease without esophagitis; I10 Essential (primary) hypertension; E03.9 Hypothyroidism, unspecified; G43.909 Migraine, unspecified, not intractable, without status migrainosus; M72.0 Palmar fascial fibromatosis [Dupuytren]; Z79.899 Other long term (current) drug therapy
CPT/HCPCS: 36415; 80053; 85025

== ENCOUNTER → 2020-08-14 11:02 | Outpatient (CLI) | payer MEDICARE, SELFPAY ==
[2020-08-14 12:22] LABS: Absolute Lymphocyte Count 1.29 X10^3/uL (0.83-4.51); Absolute Neutrophil Count 2.5 X10^3/uL (2.0-7.7); Basophil# 0.03 X10^3/uL; Basophil% 0.7 % (0-1); Eosinophil# 0.06 X10^3/uL; Eosinophils% 1.4 % (0-5); Hemoglobin 12.9 g/dL (12.0-15.0); Lymphocyte # 1.29 X10^3/ul (4.0); Lymphocyte % 30.5 % (19-41); Mean Corpuscular Hgb 29.3 pg (27.0-32.0); Mean Corpuscular Volume 97.5 fL (81-99); Mean Platelet Vol. 10.6 fl (6.2-12.0); Monocyte# 0.38 X10^3/uL; NRBC Flagged by Analyzer 0 % (0-5); Neutrophil # 2.46 X10^3/uL (2.7-7.7); Neutrophil % 58.2 % (47-70); Platelet Count 193 K/mm3 (150-450); RBC Distribution Width CV 13.7 % (11.6-14.6); RBC Distribution Width SD 49.1 fl (35.1-43.9); Red Blood Count 4.41 M/mm3 (4.2-5.4); White Blood Count 4.2 K/mm3 (4.4-11.0)
[2020-08-14 12:42] LABS: ALB/GLOB Ratio 0.9 RATIO (0.9-2.4); AST(SGOT) 18 U/L (15-37); Alanine Aminotransfer ALT/SGPT 20 U/L (13-56); Albumin, Serum 3.7 g/dL (3.2-5.0); Alkaline Phosphatase 106 U/L (45-117); Anion Gap 6 (5-15); BUN 12 mg/dL (7-18); BUN/Creat Ratio 19.9 RATIO (10-20); Calcium,Total 9.1 mg/dL (8.5-10.1); Chloride 105 mmol/L (98-107); EST Glomerular Filtration Rate 105 mL/min (>60); Est Glom Filt Rate - Afr Amer 127 mL/min (>60); Globulin 4.3 g/dL (2.2-4.2); Glucose 84 mg/dL (74-106); Potassium 3.8 mmol/L (3.5-5.1); Sodium Level 140 mmol/L (136-145)
== END ==
PROVIDERS: PCP Family Medicine; Referring Provider Internal Medicine Rheumatology; Visit Provider Internal Medicine Rheumatology
DX: M06.4 Inflammatory polyarthropathy (principal); M79.7 Fibromyalgia; M15.9 Polyosteoarthritis, unspecified; Q66.70 Congenital pes cavus, unspecified foot; K21.9 Gastro-esophageal reflux disease without esophagitis; I10 Essential (primary) hypertension; E03.9 Hypothyroidism, unspecified; G43.909 Migraine, unspecified, not intractable, without status migrainosus; M72.0 Palmar fascial fibromatosis [Dupuytren]; Z79.899 Other long term (current) drug therapy
CPT/HCPCS: 36415; 80053; 85025

== ENCOUNTER → 2020-09-10 10:19 | Outpatient (CLI) | payer MEDICARE, SELFPAY ==
[2020-09-10 12:18] LABS: Anion Gap 4 (5-15); BUN 16 mg/dL (7-18); BUN/Creat Ratio 23.8 RATIO (10-20); Chloride 108 mmol/L (98-107); Cholesterol 210 mg/dL (200); Creatinine, Serum 0.67 mg/dL (0.55-1.02); EST Glomerular Filtration Rate 93 mL/min (>60); Est Glom Filt Rate - Afr Amer 112 mL/min (>60); Glucose 85 mg/dL (74-106); High Density Lipoprotein 106 mg/dL; Sodium Level 141 mmol/L (136-145); Thyroid Stim Hormone (TSH) 4.55 uIU/mL (0.358-3.74); Triglycerides 71 mg/dL; Very Low Density Lipoprotein 14 mg/dL (5-40)
== END ==
PROVIDERS: PCP Family Medicine; Referring Provider Family Medicine; Visit Provider Family Medicine
DX: I10 Essential (primary) hypertension (principal); E03.9 Hypothyroidism, unspecified
CPT/HCPCS: 36415; 80048; 80061; 84443

== ENCOUNTER → 2021-03-15 10:08 | Outpatient (CLI) | payer MEDICARE, SELFPAY ==
[2021-03-15 12:00] LABS: Absolute Lymphocyte Count 1.02 X10^3/uL (0.83-4.51); Absolute Neutrophil Count 2.6 X10^3/uL (2.0-7.7); Basophil# 0.01 X10^3/uL; Basophil% 0.3 % (0-1); Eosinophil# 0.04 X10^3/uL; Hematocrit 43.4 % (37-47); Hemoglobin 13.2 g/dL (12.0-15.0); Lymphocyte # 1.02 X10^3/ul (0.83-4.51); Lymphocyte % 25.6 % (19-41); Mean Corp Hgb Conc 30.4 g/dL (32-36); Mean Corpuscular Hgb 28.5 pg (27.0-32.0); Mean Corpuscular Volume 93.7 fL (81-99); Monocyte% 7.5 % (0-10); NRBC Flagged by Analyzer 0 % (0-5); Neutrophil % 65.3 % (47-70); Platelet Count 146 K/mm3 (150-450); RBC Distribution Width CV 13.6 % (11.6-14.6); RBC Distribution Width SD 46.4 fl (35.1-43.9); Red Blood Count 4.63 M/mm3 (4.2-5.4)
[2021-03-15 12:42] LABS: Anion Gap 5 (5-15); BUN 12 mg/dL (7-18); BUN/Creat Ratio 19.8 RATIO (10-20); Chloride 104 mmol/L (98-107); Cholesterol 238 mg/dL (200); Creatinine, Serum 0.61 mg/dL (0.55-1.02); EST Glomerular Filtration Rate 104 mL/min (>60); Est Glom Filt Rate - Afr Amer 126 mL/min (>60); Free T3 2.8 pg/mL (2.18-3.98); Glucose 81 mg/dL (74-106); High Density Lipoprotein 105 mg/dL; Potassium 3.3 mmol/L (3.5-5.1); Sodium Level 139 mmol/L (136-145); Triglycerides 47 mg/dL; Very Low Density Lipoprotein 9 mg/dL (5-40)
== END ==
PROVIDERS: PCP Family Medicine; Visit Provider Family Medicine
DX: E03.9 Hypothyroidism, unspecified (principal); I10 Essential (primary) hypertension; M06.9 Rheumatoid arthritis, unspecified
CPT/HCPCS: 36415; 80048; 80061; 84439; 84443; 84481; 85025

== ENCOUNTER → 2021-09-09 | Outpatient (CLI) | payer MEDICARE, SELFPAY | END | disposition home or self-care (01) | LOC: LABSPEC 09-13 06:48 | PROVIDERS: PCP Family Medicine; Referring Provider Family Medicine; Visit Provider Family Medicine | DX: U07.1 COVID-19 (principal) | CPT/HCPCS: 87635; U0005; U0003 ==

== ENCOUNTER 2021-11-17 15:11 | Inpatient (IN) | payer MEDICARE, SELFPAY ==
[2021-11-17] VITALS (10 sets, daily range): BP systolic 119–145; BP diastolic 56–80; PULSE 110–123; RESP 16–25; TEMP 36.8–37.8; O2SAT 91–97; BMI 16.0; BMI 16.2
--- NOTE | 2021-11-17 15:30 | EKG12_ITS ---
Test Reason : COUGH Blood Pressure : / mmHG Vent. Rate : 118 BPM Atrial Rate : 118 BPM P-R Int : 164 ms QRS Dur : 088 ms QT Int : 282 ms P-R-T Axes : 076 -67 094 degrees QTc Int : 395 ms Sinus tachycardia Biatrial enlargement Left axis deviation Septal infarct , age undetermined Abnormal ECG Confirmed by SHAWANDA MONTE, SHANNEN ([id number]), web editor MACARENA HAWKINS ([id number]) on 11/18/2021 2:03:45 PM Referred By: JUSTYNA Confirmed By:LAURA MAYBERRY MD
--- NOTE | 2021-11-17 15:32 | EX.ED.DYSGE1 ---
HPI History of Present Illness Chief Complaint: Cough Informant: patient and family Narrative Narrative: Patient here with daughter evaluation flulike symptoms starting 2 days ago. States rundown decreased appetite since then chills and sweats. Mild productive cough with pain on the right side with cough. She is flu vaccinated along with Covid vaccinated with boosters. No sick contacts. No tobacco history. States told COPD in the past however states since then been ruled out. Denies wheezing. Denies vomiting or diarrhea. No urinary symptoms. No chest or abdominal pain. History of rheumatoid arthritis on methotrexate. [facility] Medical History Asthma Benign essential HTN Bronchitis COPD (chronic obstructive pulmonary disease) Emphysema lung GERD (gastroesophageal reflux disease) Hyperlipidemia Hypertension Hypothyroid Hypothyroid inflammatory lung disease Osteoarthritis Osteoporosis Pleural effusion Pneumonia Pulmonary nodule Rheumatoid arthritis Home Medications amlodipine 5 mg PO DAILY 02/18/19 [History Last Taken 11/16/21] hydroxychloroquine 200 mg PO DAILY 02/18/19 [History Last Taken 11/15/21] biotin 5,000 mcg sublingual tablet 5,000 mcg SUBLINGUAL DAILY 03/07/19 [History Last Taken 11/15/21] cholecalciferol (vitamin D3) 50 mcg (2,000 unit) capsule 2,000 unit PO DAILY 03/07/19 [History Last Taken 11/15/21] omeprazole 40 mg capsule,delayed release 40 mg PO DAILY 03/07/19 [History Last Taken 11/15/21] albuterol sulfate 2.5 mg INHALATION Q4H PRN #180 ml 03/13/19 [Rx Last Taken Unknown] PEP device #1 ea 04/10/19 [Rx Last Taken Unknown] folic acid 1 mg tablet 2 mg PO BID tab 07/17/19 [History Last Taken 11/15/21] levothyroxine [Euthyrox] 75 mcg PO DAILY 11/17/21 [History Last Taken 11/16/21] potassium chloride 20 meq PO DAILY 11/17/21 [History Last Taken 11/15/21] Allergy/AdvReac Type Severity Reaction Status Date / Time promethazine [From Phenergan] AdvReac Nausea/Vom/ Verified 11/17/21 15:12 Diarrhea Family History Father COPD (chronic obstructive pulmonary disease) smoker Mother COPD (chronic obstructive pulmonary disease) smoker Surgical History History of appendectomy Social History Smoking Status: Never smoker ROS ROS ED Constitutional Constitutional ED: Reports chills and fever(s); Denies sweats Eyes Eyes: Denies change in vision ENT ENT ED: Denies dysphagia or sore throat Cardiovascular Cardiovascular: Denies chest pain, leg edema, palpitations or racing heartbeat Respiratory/Chest Respiratory/Chest: Reports cough and dyspnea; Denies dyspnea on exertion Gastrointestinal Gastrointestinal: Denies abdominal pain, diarrhea, nausea or vomiting Genitourinary Genitourinary ED: Denies dysuria, hematuria or urinary frequency Musculoskeletal Musculoskeletal: Denies back pain, extremity pain or neck pain Integumentary Denies rash or wounds Neurologic Neurologic: Denies headache(s), paresthesias or weakness EXAM Physical Exam Const Vital Signs: 11/17/21 15:12 11/17/21 15:45 11/17/21 15:52 Temperature 98.3 F 99.3 F H Temperature Source Temporal Oral Pulse Rate 123 H 113 H Respiratory Rate 16 20 H Respiratory Effort Normal Non-Labored Blood Pressure 128/56 H 132/69 H Blood Pressure Mean 80 90 Pulse Ox 97 91 Oxygen Delivery Method Room Air Room Air Room Air Positive well nourished and well developed Constitutional Narrative: fatigued, nontoxic General Appearance ED: well developed HEENT Reports dry mucous membranes normocephalic and atraumatic Mouth ED: Yes dry mucous membranes Mouth: dry mucous membranes Eyes PERRL, EOMs intact bilaterally and conjunctivae normal General Eye ED: Yes normal appearance of both eyes Neck no lymphadenopathy and supple General: Negative for tenderness Chest Wall Chest: Negative for tenderness Resp normal respiratory effort and normal air movement Effort and Inspection: symmetric chest movement; Negative for respiratory distress Cardio regular rhythm and no murmurs Rate: tachycardic Peripheral Pulses: pulses 2+ throughout GI normal to inspection, nondistended, normoactive bowel sounds and non-tender Palpation: Negative for guarding or rebound tenderness present Back/Spine no CVA tenderness and no thoracic nor lumbar tenderness Extremity normal to inspection General Extremety ED: Negative for edema or tenderness General Extremity: Negative for edema Neuro oriented x3 and no sensory deficits noted Sensorium / Orientation: awake and alert Skin no rashes or lesions noted and no wounds MDM MDM MDM Narrative Medical decision making narrative: Patient fatigued however nontoxic tachycardic on exam. Laboratory studies drawn, influenza and Covid also obtained both negative. White count returned at 22.5. Lactic acid blood cultures drawn. Chest x-ray reviewed by myself and read by radiology with a right lower lobe infiltrate. Initial pulse ox 97% resting monitoring with down to 91 upon ambulation dropped to 85%. Patient covered Rocephin and Zithromax. Potassium 3.3 this was orally replaced. I spoke with hospitalist Dr. Maravilla for admission. Lactic acid returned at 1.4. Patient meets sepsis criteria however is not septic, no severe sepsis met. Lab Data Attestation: I reviewed the patient's lab results. Labs: Laboratory Results - last 24 hr 11/17/21 11/17/21 11/17/21 15:55 15:55 17:10 WBC 22.5 H RBC 4.35 Hgb 13.4 Hct 41.1 MCV 94.5 MCH 30.8 MCHC 32.6 RDW Std Deviation 45.1 H RDW Coeff of Roni 12.9 Plt Count 215 MPV 10.9 Immature Gran % (Auto) 1.300 H Neut % (Auto) 89.4 H Lymph % (Auto) 1.7 L [place] % (Auto) 7.0 Eos % (Auto) 0.4 Baso % (Auto) 0.2 Absolute Neuts (auto) 20.1 H Absolute Lymphs (auto) 0.39 L Nucleated RBC % 0 Differential Comment SCANNED Diff Path Review May foll Sodium 136 Potassium 3.3 L Chloride 100 Carbon Dioxide 28.0 Anion Gap 8 BUN 11 Creatinine 0.68 Estim Creat Clear Calc 32.32 Est GFR (MDRD) Af Amer 111 Est GFR (MDRD) Non-Af 92 BUN/Creatinine Ratio 16.3 Glucose 98 Lactic Acid 1.4 Calcium 9.5 Total Bilirubin 0.60 AST 18 ALT 18 Alkaline Phosphatase 124 H Total Protein 7.9 Albumin 3.0 L Globulin 4.9 H Albumin/Globulin Ratio 0.6 L Radiography Chest X-Ray - ED: 1 View, Read by ED Physician and Read by Radiologist Diagnostic Testing: Clinical Impression(s) from Imaging Studies Chest X-Ray 03/02/22 16:05 IMPRESSION: Emphysema with right lower lobe pneumonia. Electronically Signed: Giacomo Mathur MD at 16:16 EST , EKG Initial EKG: Attestation: I personally reviewed and interpreted this EKG as follows: Comments: Sinus rate of 118, no ST or T wave changes QTC 395. Critical Care Time Critical Care Time: Yes Critical care time (excluding procedures): 30-74 minutes and - (35 minutes) Discharge Plan Dx/Rx/DC Orders Clinical Impression: Sepsis, Rheumatoid arthritis, Community acquired pneumonia, Hypoxia, Acute hypokalemia, Immunocompromised state Disposition Disposition: Acute Care Hospital [facility] Discharge Date/Time: 11/17/21 17:39
[2021-11-17] MEDS: 0.9% Normal Saline 1,000 ML 1000 ML IV (16:00)
--- NOTE | 2021-11-17 16:05 | RAD_ITS ---
STUDY: X-RAY CHEST REASON FOR EXAM: Female, 71 years old. cough TECHNIQUE: Single AP portable view of the chest. COMPARISON: 04/11/2020 FINDINGS: There is hyperinflation of the lungs consistent with chronic obstructive lung disease (COPD). Alveolar opacity in the lower right lung consistent with right lower lobe pneumonia. There is no demonstrated pleural abnormality. Normal size heart. Normal mediastinum and michael. Normal visualized pulmonary arteries. Normal visualized aortic arch and descending thoracic aorta. Normal visualized thoracic spine. Normal visualized ribs, clavicles, and shoulders. There is no demonstrated abnormality of the visualized soft tissue structures of the upper abdomen. RAD/Chest 1 View (Portable) IMPRESSION: Emphysema with right lower lobe pneumonia. Electronically Signed: Giacomo Mathur MD at 16:16 EST ,
[2021-11-17 16:14] LABS: Absolute Lymphocyte Count 0.39 X10^3/uL (0.83-4.51); Absolute Neutrophil Count 20.1 X10^3/uL (2.0-7.7); Basophil# 0.05 X10^3/uL; Basophil% 0.2 % (0-1); Eosinophil# 0.09 X10^3/uL; Eosinophils% 0.4 % (0-5); Hematocrit 41.1 % (37-47); Hemoglobin 13.4 g/dL (12.0-15.0); Lymphocyte # 0.39 X10^3/ul (0.83-4.51); Lymphocyte % 1.7 % (19-41); Mean Corp Hgb Conc 32.6 g/dL (32-36); Mean Corpuscular Hgb 30.8 pg (27.0-32.0); Mean Corpuscular Volume 94.5 fL (81-99); Mean Platelet Vol. 10.9 fl (6.2-12.0); Monocyte# 1.57 X10^3/uL; NRBC Flagged by Analyzer 0 % (0-5); Neutrophil # 20.09 X10^3/uL (2.7-7.7); Neutrophil % 89.4 % (47-70); POSITIVE DIFFERENTIAL YES; Platelet Count 215 K/mm3 (150-450); RBC Distribution Width CV 12.9 % (11.6-14.6); RBC Distribution Width SD 45.1 fl (35.1-43.9); Red Blood Count 4.35 M/mm3 (4.2-5.4); White Blood Count 22.5 K/mm3 (4.4-11.0)
[2021-11-17 16:16] LABS: Differential Indicated SCAN CRITERIA MET
[2021-11-17 16:23] LABS: ALB/GLOB Ratio 0.6 RATIO (0.9-2.4); AST(SGOT) 18 U/L (15-37); Alanine Aminotransfer ALT/SGPT 18 U/L (13-56); Alkaline Phosphatase 124 U/L (45-117); Anion Gap 8 (5-15); BUN 11 mg/dL (7-18); BUN/Creat Ratio 16.3 RATIO (10-20); Calcium,Total 9.5 mg/dL (8.5-10.1); Chloride 100 mmol/L (98-107); Creatinine, Serum 0.68 mg/dL (0.55-1.02); EST Glomerular Filtration Rate 92 mL/min (>60); Est Glom Filt Rate - Afr Amer 111 mL/min (>60); Estimated Creatinine Clearance 32.32 ml/min; Globulin 4.9 g/dL (2.2-4.2); Glucose 98 mg/dL (74-106); Potassium 3.3 mmol/L (3.5-5.1); Protein, Total 7.9 g/dL (6.4-8.2); Sodium Level 136 mmol/L (136-145)
--- NOTE | 2021-11-17 17:00 | ED.RN ---
per daughter of pt, pt previously had good effects with Levaquin for pneumonia.
--- NOTE | 2021-11-17 17:17 | NURSING ---
MED SURG JOPPERI PNEUMONIA, HYPOXIA
--- NOTE | 2021-11-17 17:19 | HP.PCM.HOS_ITS ---
HPI - General General Date of Admission: 11/17/21 Date of Service: 11/17/21 Chief Complaint: shortness of breath HPI Narrative DINORAH LOPEZ, is a 71 F who presents with 3-day history of shortness of breath. Patient was feeling well up until then but since then has been having shortness of breath, some chills, cough and sputum production. Presents to the emergency room and was found to have a right lower lobe infiltrate. Patient is also having right lower chest pain. The attempted to ambulate her and she dropped to 85% on room air. Patient received ceftriaxone and azithromycin in the emergency room. Given her hypoxia with ambulation patient being admitted for further pneumonia work-up. [facility] Medical History Asthma Benign essential HTN Bronchitis COPD (chronic obstructive pulmonary disease) Emphysema lung GERD (gastroesophageal reflux disease) Hyperlipidemia Hypertension Hypothyroid Hypothyroid inflammatory lung disease Osteoarthritis Osteoporosis Pleural effusion Pneumonia Pulmonary nodule Rheumatoid arthritis Home Medications amlodipine 5 mg PO DAILY 02/18/19 [History Last Taken 11/16/21] hydroxychloroquine 200 mg PO DAILY 02/18/19 [History Last Taken 11/15/21] biotin 5,000 mcg sublingual tablet 5,000 mcg SUBLINGUAL DAILY 03/07/19 [History Last Taken 11/15/21] cholecalciferol (vitamin D3) 50 mcg (2,000 unit) capsule 2,000 unit PO DAILY 03/07/19 [History Last Taken 11/15/21] omeprazole 40 mg capsule,delayed release 40 mg PO DAILY 03/07/19 [History Last Taken 11/15/21] albuterol sulfate 2.5 mg INHALATION Q4H PRN #180 ml 03/13/19 [Rx Last Taken U nknown] PEP device #1 ea 04/10/19 [Rx Last Taken Unknown] folic acid 1 mg tablet 2 mg PO BID tab 07/17/19 [History Last Taken 11/15/21] levothyroxine [Euthyrox] 75 mcg PO DAILY 11/17/21 [History Last Taken 11/16/21] potassium chloride 20 meq PO DAILY 11/17/21 [History Last Taken 11/15/21] Allergy/AdvReac Type Severity Reaction Status Date / Time promethazine [From Phenergan] AdvReac Nausea/Vom/ Verified 11/17/21 15:12 Diarrhea Family History Father COPD (chronic obstructive pulmonary disease) smoker Mother COPD (chronic obstructive pulmonary disease) smoker Surgical History History of appendectomy Social History Smoking Status: Never smoker ROS ROS Narrative All review of systems were negative except as mentioned above in the history of present illness and the other review of systems. Vital Signs Vital Signs Vital Signs: 11/17/21 15:12 11/17/21 15:45 11/17/21 15:52 Temperature 36.8 C 37.4 C H Temperature Source Temporal Oral Pulse Rate 123 H 113 H Respiratory Rate 16 20 H Respiratory Effort Normal Non-Labored Blood Pressure 128/56 H 132/69 H Blood Pressure Mean 80 90 Pulse Ox 97 91 Oxygen Delivery Method Room Air Room Air Room Air Weight Weight: 38.555 kg Body Mass Index (BMI) 16.0 Physical Exam Const alert and oriented x3 Constitutional Narrative: Gaunt. Afebrile. No respiratory distress. No conversational dyspnea. HEENT normocephalic, head/scalp atraumatic, hearing grossly normal bilaterally and moist oral mucous membranes Eyes Eyes Narrative: No icterus Neck no lymphadenopathy Neck Narrative: No thyromegaly Resp Resp Narrative: No wheezes. Clear bilaterally. Diminished in the right lower lobe. Cardio Cardio Narrative: Tachycardic and regular. GI normal to inspection, nondistended, normoactive bowel sounds, soft to palpation, non-tender, non-distended and hepatosplenomegaly Extremity normal to inspection Skin no rashes or lesions noted Neuro Sensorium / Orientation: awake and alert Psych affect normal Results Lab / Micro Data Result Diagrams: 11/17/21 15:55 11/17/21 15:55 Labs: Laboratory Results - last 24 hr 11/17/21 15:55: WBC 22.5 H, RBC 4.35, Hgb 13.4, Hct 41.1, MCV 94.5, MCH 30.8, MCHC 32.6, RDW Std Deviation 45.1 H, RDW Coeff of Roni 12.9, Plt Count 215, MPV 10.9, Immature Gran % (Auto) 1.300 H, Neut % (Auto) 89.4 H, Lymph % (Auto) 1.7 L , [place] % (Auto) 7.0, Eos % (Auto) 0.4, Baso % (Auto) 0.2, Absolute Neuts (auto) 20.1 H, Absolute Lymphs (auto) 0.39 L, Nucleated RBC % 0 11/17/21 15:55: Sodium 136, Potassium 3.3 L, Chloride 100, Carbon Dioxide 28.0, Anion Gap 8, BUN 11, Creatinine 0.68, Estim Creat Clear Calc 32.32, Est GFR (MDRD) Af Amer 111, Est GFR (MDRD) Non-Af 92, BUN/Creatinine Ratio 16.3, Glucose 98, Calcium 9.5, Total Bilirubin 0.60, AST 18, ALT 18, Alkaline Phosphatase 124 H, Total Protein 7.9, Albumin 3.0 L, Globulin 4.9 H, Albumin/Globulin Ratio 0.6 L Micro: Microbiology 11/17/21 15:40 Mucosa - Nose Influenza Types A,B Direct FA (GARRETT) - Final 11/17/21 15:40 Nasal Secretion SARS-CoV-2 Antigen (Rapid) - Final Radiology Impression Chest X-Ray 11/17/21 16:05 IMPRESSION: Emphysema with right lower lobe pneumonia. Electronically Signed: Giacomo Mathur MD at 16:16 EST , Assessment & Plan Assessment/Plan (1) Pneumonia: QUALIFIERS: Pneumonia type: due to unspecified organism Laterality: right Lung location: lower lobe of lung Qualified Code(s): J18.9 - Pneumonia, unspecified organism (2) Acute respiratory failure with hypoxia: PLAN: 1. Acute pneumonia Suspected pneumococcal Received ceftriaxone and azithromycin emergency room and will continue Pulmonary toilet Check sputum culture Check urinary antigens for strep and Legionella 2. Acute hypoxic respiratory failure Multifactorial due to the patient's underlying bronchiectasis, COPD but also her pneumonia Wean oxygen as able 3. Bronchiectasis and COPD Not in exacerbation at this point in time so no no indication for steroids Follow-up pulmonary as outpatient 4. Rheumatoid arthritis Complicates overall care and recovery Continue with methotrexate 5. VTE prophylaxis with enoxaparin 6. CODE STATUS: Addressed with patient. Patient wished to be full CODE STATUS 7. COVID-19 vaccination status: Patient is vaccinated for COVID-19. Charges/Coding Visit Charges Inpatient E&M: 85581 Init Hosp L2
[2021-11-17] MEDS: Ceftriaxone 1 GM/50 ML BAG IV (17:20)
[2021-11-17] MEDS: Potassium Chloride Oral Tablet 20 MEQ 40 MEQ PO (17:25)
[2021-11-17 17:39] LABS: Differential Comment SCANNED
[2021-11-17 17:54] LABS: Lactic Acid 1.4 mmol/L (0.4-1.9)
[2021-11-17] MEDS: Ipratropium/Albuterol Sulfate 3 ML AMPUL.NEB INHALATION (19:40)
[2021-11-17] MEDS: Enoxaparin 40 MG/0.4 ML Syringe SC (21:55)
[2021-11-17] MEDS: Folic Acid 1 MG Tablet 2 MG PO (21:55)
[2021-11-17] MEDS: guaiFENesin 1,200 MG Tablet 1200 MG PO (21:55)
[2021-11-18] VITALS (13 sets, daily range): BP systolic 112–132; BP diastolic 60–78; PULSE 94–117; RESP 14–20; TEMP 36.6–37.1; O2SAT 96–98
[2021-11-18] MEDS: Levothyroxine 75 MCG Tablet PO (06:06)
[2021-11-18 06:20] LABS: Absolute Lymphocyte Count 0.69 X10^3/uL (0.83-4.51); Absolute Neutrophil Count 19.9 X10^3/uL (2.0-7.7); Basophil# 0.04 X10^3/uL; Basophil% 0.2 % (0-1); Eosinophil# 0.07 X10^3/uL; Eosinophils% 0.3 % (0-5); Hematocrit 35.5 % (37-47); Hemoglobin 11.4 g/dL (12.0-15.0); Lymphocyte # 0.69 X10^3/ul (0.83-4.51); Lymphocyte % 3.1 % (19-41); Mean Corp Hgb Conc 32.1 g/dL (32-36); Mean Corpuscular Hgb 30.4 pg (27.0-32.0); Mean Corpuscular Volume 94.7 fL (81-99); Mean Platelet Vol. 10.7 fl (6.2-12.0); Monocyte# 1.65 X10^3/uL; Monocyte% 7.3 % (0-10); NRBC Flagged by Analyzer 0 % (0-5); Neutrophil # 19.94 X10^3/uL (2.7-7.7); Neutrophil % 88.2 % (47-70); POSITIVE DIFFERENTIAL YES; POSITIVE MORPHOLOGY YES; Platelet Count 195 K/mm3 (150-450); RBC Distribution Width SD 45.4 fl (35.1-43.9); Red Blood Count 3.75 M/mm3 (4.2-5.4); White Blood Count 22.6 K/mm3 (4.4-11.0)
[2021-11-18 06:23] LABS: Differential Indicated SCAN CRITERIA MET
[2021-11-18 06:41] LABS: Anion Gap 5 (5-15); BUN 9 mg/dL (7-18); BUN/Creat Ratio 17.3 RATIO (10-20); Calcium,Total 8.3 mg/dL (8.5-10.1); Chloride 103 mmol/L (98-107); Creatinine, Serum 0.52 mg/dL (0.55-1.02); EST Glomerular Filtration Rate 125 mL/min (>60); Est Glom Filt Rate - Afr Amer 151 mL/min (>60); Estimated Creatinine Clearance 32.77 ml/min; Glucose 109 mg/dL (74-106); Potassium 3.7 mmol/L (3.5-5.1); Sodium Level 136 mmol/L (136-145)
[2021-11-18 06:45] LABS: Differential Comment SCANNED
[2021-11-18] MEDS: Ipratropium/Albuterol Sulfate 3 ML AMPUL.NEB INHALATION ×3 (07:07→20:02)
[2021-11-18] MEDS: Folic Acid 1 MG Tablet 2 MG PO ×2 (07:32→16:55)
[2021-11-18] MEDS: Potassium Chloride Oral Tablet 10 MEQ PO (07:32)
[2021-11-18] MEDS: Hydroxychloroquine 200 MG Tablet PO (07:33)
[2021-11-18] MEDS: Pantoprazole Sodium 40 MG Tablet PO (07:33)
[2021-11-18] MEDS: Enoxaparin 40 MG/0.4 ML Syringe SC ×2 (07:33→20:27)
[2021-11-18] MEDS: guaiFENesin 1,200 MG Tablet 1200 MG PO ×2 (07:33→20:27)
[2021-11-18] MEDS: Cholecalciferol (VIT D3) 25 MCG TABLET (1,000 UNITS) 50 MCG PO (07:33)
[2021-11-18] MEDS: amLODIPine 5 MG Tablet PO (07:33)
--- NOTE | 2021-11-18 11:35 | CASEMGMT ---
RN CM COATER ASSOCIATE CM to room to meet with patient for initial transition planning/care coordination assessment. ONUR DELGADO introduced self and role at [facility]. Pt voices understanding and consents to assessment at this time. Pt resting in bed in no distress at this time. Pt is A/O at this time and answers all questions appropriately. Care providers, pharmacy, and demographics verified/updated at this time. PCP: Dr Duckworth Specialists: none Preferred Pharmacy: [facility] Insurance: [facility] A/B Prescription Benefit: Yes Living Will/HPOA: Pt does not currently have LW/HCPOA and would like to speak w/SW to complete. Pt states wants her daughter, Althea, to be present, though, and states thinks Althea will be coming to see her today after 2:15 PM. Pt made aware SW may not be available today after 2:15, but SW would be made aware. LNOK: 3 daughters and a son. Daughters: Althea, Chapis, Jessica. Son, Edwin Living Arrangements: Lives w/son, Edwin, and 11 yr-old granddaughter in a 2-story home. Pt states she sleeps on the 1st floor but does have to go to the 2nd floor to get her clothes and belongings. There is a bathroom on the main floor. Pt states is independent w/ADL's and IADL's. She states she is able to navigate the stairs okay unless she is not feeling well. Transportation: Pt states she does not drive. Her children provide transportation. DME: States has the following DME: nebulizer. She does not have a pulse ox and does not wear Home O2. Pt currently on 2 l/m O2. Discussed possible need of home O2 @ discharge. Provided w/list of local DME companies and she states [employer]. HHC/SNF: No hx of either. No needs identified. Pt wishes to return home and states has no concerns with going home at time of discharge. CM to follow for home oxygen needs and any further discharge planning/needs. Pt voices no further concerns/needs at this time. Advised pt to ask for CM if any further questions/concerns/needs arise. Voices understanding. PLAN: Home w/family support and discharge plans in place. Korin SPENCE RN CM
--- NOTE | 2021-11-18 14:00 | CHAPLAIN ---
Type of Pastoral Visit _x__ Initial Visit ___ Follow-up Visit ___ On-call Visit ___ General Patient Visit ___ Spiritual Assessment ___ Family Conference ___ Bereavement ___ Rapid Response ___ Code Blue ___ Other (describe below) Pastoral Care Referral From _x__ Patient ___ Family ___ Nurse ___ Physician ___ Alcohol Still Operator ___ Mechanic Recovery ___ Other (describe below) Sacrament/Intervention ___ Active listening ___ Anointing ___ Uatsdin ___ Bereavement ___ Communion ___ Belkis exploration ___ ___ Life review ___ Prayer ___ Reconciliation ___ Sacrament of Sick _x__ Supportive presence ___ Wedding ___ Other (describe below) Pastoral Comments offer of support given; pt is awake but does not engage in conversation; pt wants to rest; otherwise pt states she has no other needs
[2021-11-18] MEDS: Acetaminophen 325 MG Tablet 650 MG PO (14:04)
--- NOTE | 2021-11-18 15:10 | PN.HOSP_ITS ---
Subjective Subjective Follow-up on pneumonia: Patient was seen and examined. She complains of feeling slightly better. Remains on 2 L of oxygen. Not on oxygen at home. Denies any fever or chills. Objective Data Objective Data Vital Signs: Vital Signs Temp Pulse Resp BP Pulse Ox 98.6 F 114 H 18 127/60 H 96 11/18/21 13:30 11/18/21 13:30 11/18/21 13:30 11/18/21 13:30 11/18/21 13:30 Oxygen Flow Rate (L/min) 2 Oxygen Delivery Method Nasal Cannula Weight: 39.1 kg Body Mass Index (BMI) 16.2 Intake & Output: Intake and Output for Last 24 Hours 11/16/21 11/17/21 11/18/21 23:59 23:59 23:59 Intake Total 1305 / 1305 555 / 555 Balance 1305 / 1305 555 / 555 Medical Nutrition Assessment Dietitian: Malnutrition Criteria Met Start: 11/18/21 12:00 Freq: Status: Active Protocol: Document 11/18/21 12:00 (Rec: 11/18/21 12:00 [id number]) Nutrition Malnutrition Evidence of Malnutrition Exists Yes Malnutrition (severe): Chronic Evidenced By Suboptimal Energy Intake ( Severe),Weight Loss (Severe) Clinical Problem Chronic Disease or Condition Related Malnutrition Etiology severe, chronic malnutrition r /t inadequate energy intake w/ increased energy needs d/t COPD Signs/Symptoms as evidenced by reported unintentional wt loss of 8.8#/ 9% <1 month; estimated energy intake meeting <75% of estimated energy needs >3 months; severe muscle wasting, fat loss in upper extremities ; prominent clavicles, acromion process; wasting evident scapula, temples, and orbital areas per physical exam Status Active Problem Recommendation Dietitian Recommendations/Changes continue regular diet; continue 120mL ensure enlive 4x/day w/ medpass as tolerated ; will try 240mL ensure clear w/ meals and will fortify foods when possible d/t malnutrition Lab / Micro Data Result Diagrams: 11/18/21 05:50 11/18/21 05:50 Labs: Laboratory Results - last 24 hr 11/17/21 15:55: WBC 22.5 H, RBC 4.35, Hgb 13.4, Hct 41.1, MCV 94.5, MCH 30.8, MCHC 32.6, RDW Std Deviation 45.1 H, RDW Coeff of Roni 12.9, Plt Count 215, MPV 10.9, Immature Gran % (Auto) 1.300 H, Neut % (Auto) 89.4 H, Lymph % (Auto) 1.7 L , [place] % (Auto) 7.0, Eos % (Auto) 0.4, Baso % (Auto) 0.2, Absolute Neuts (auto) 20.1 H, Absolute Lymphs (auto) 0.39 L, Nucleated RBC % 0, Differential Comment SCANNED, Diff Path Review January [facility] 11/17/21 15:55: Sodium 136, Potassium 3.3 L, Chloride 100, Carbon Dioxide 28.0, Anion Gap 8, BUN 11, Creatinine 0.68, Estim Creat Clear Calc 32.32, Est GFR (MDRD) Af Amer 111, Est GFR (MDRD) Non-Af 92, BUN/Creatinine Ratio 16.3, Glucose 98, Calcium 9.5, Total Bilirubin 0.60, AST 18, ALT 18, Alkaline Phosphatase 124 H, Total Protein 7.9, Albumin 3.0 L, Globulin 4.9 H, Albumin/Globulin Ratio 0.6 L 11/17/21 17:10: Lactic Acid 1.4 11/18/21 05:50: WBC 22.6 H, RBC 3.75 L, Hgb 11.4 L, Hct 35.5 L, MCV 94.7, MCH 30.4, MCHC 32.1, RDW Std Deviation 45.4 H, RDW Coeff of Roni 13.0, Plt Count 195, MPV 10.7, Immature Gran % (Auto) 0.900, Neut % (Auto) 88.2 H, Lymph % (Auto) 3.1 L, [place] % (Auto) 7.3, Eos % (Auto) 0.3, Baso % (Auto) 0.2, Absolute Neuts (auto) 19.9 H, Absolute Lymphs (auto) 0.69 L, Nucleated RBC % 0, Differential Comment SCANNED, Diff Path Review January [facility] 11/18/21 05:50: Sodium 136, Potassium 3.7, Chloride 103, Carbon Dioxide 28.0, Anion Gap 5, BUN 9, Creatinine 0.52 L, Estim Creat Clear Calc 32.77, Est GFR (MDRD) Af Amer 151, Est GFR (MDRD) Non-Af 125, BUN/Creatinine Ratio 17.3, Glucose 109 H, Calcium 8.3 L Micro: Microbiology 11/18/21 03:20 Sputum, Expectorated/Coughed Gram Stain - Final 11/17/21 22:00 Urine, Clean Catch Streptococcus pneumoniae Antigen (M - Final 11/17/21 15:40 Mucosa - Nose Influenza Types A,B Direct FA (GARRETT) - Final 11/17/21 15:40 Nasal Secretion SARS-CoV-2 Antigen (Rapid) - Final Radiography Diagnostic Testing: Radiology Impression Chest X-Ray 11/17/21 16:05 IMPRESSION: Emphysema with right lower lobe pneumonia. Electronically Signed: Giacomo Mathur MD at 16:16 EST , Physical Exam Narrative Physical exam: General: Alert, Oriented x3, Cooperative, No apparent distress, Well developed HEENT: Atraumatic Oral: Moist Mucosa Neck: Supple Lungs: Clear to auscultation Cardiovascular: HS I+II, regular, no murmurs Abdomen: Bowel Sounds Present, Soft, Non Tender Extremities: No edema Assessment & Plan Assessment/Plan (1) Pneumonia: QUALIFIERS: Pneumonia type: due to unspecified organism Laterality: right Lung location: lower lobe of lung Qualified Code(s): J18.9 - Pneumonia, unspecified organism (2) Acute respiratory failure with hypoxia: PLAN: 1. Acute pneumonia, suspected secondary to gram-positive organisms Patient appears clinically appears to be improving, Urine Legionella and streptococcal antigens are negative Continue IV ceftriaxone and azithromycin 2. Acute hypoxic respiratory failure secondary to #1 Continue to encourage use of IS breathing treatments as needed 3. Bronchiectasis and COPD, not in acute exacerbation 4. Rheumatoid arthritis, continue methotrexate 5. DVT PPx- Lovenox SC Charges/Coding Visit Charges Inpatient E&M: 38983 Subs Hosp L2
[2021-11-19] VITALS (8 sets, daily range): BP systolic 108–123; BP diastolic 61–72; PULSE 96–110; RESP 12–22; TEMP 36.6–37.3; O2SAT 93–97
[2021-11-19] MEDS: Levothyroxine 75 MCG Tablet PO (05:28)
[2021-11-19] MEDS: Ipratropium/Albuterol Sulfate 3 ML AMPUL.NEB INHALATION ×2 (07:32→13:27)
[2021-11-19 09:16] LABS: Pathologist Review Reviewed
[2021-11-19 09:18] LABS: Pathologist Review Reviewed
[2021-11-19] MEDS: Folic Acid 1 MG Tablet 2 MG PO (09:26)
[2021-11-19] MEDS: Hydroxychloroquine 200 MG Tablet PO (09:26)
[2021-11-19] MEDS: Enoxaparin 40 MG/0.4 ML Syringe SC (09:26)
[2021-11-19] MEDS: guaiFENesin 1,200 MG Tablet 1200 MG PO (09:26)
[2021-11-19] MEDS: Pantoprazole Sodium 40 MG Tablet PO (09:26)
[2021-11-19] MEDS: Potassium Chloride Oral Tablet 10 MEQ PO (09:26)
[2021-11-19] MEDS: amLODIPine 5 MG Tablet PO (09:26)
[2021-11-19] MEDS: Cholecalciferol (VIT D3) 25 MCG TABLET (1,000 UNITS) 50 MCG PO (09:26)
--- NOTE | 2021-11-19 12:12 | CASEMGMT ---
SW completed Healthcare Power of Lace Inspector paperwork with patient per her request. Copies were made and given to patient along with original. A copy was also placed in patient's chart. Mi INGRAM
--- NOTE | 2021-11-19 12:13 | CASEMGMT ---
Addendum entered by Nola Roa 11/19/21 12:53: Stephon Ervin RN, pt does not qualify for home oxygen. Nisreen MOHR CM Original Note: Pt is on room air and to be tested for amb pulse ox. Pt states no other concerns with going home at time of discharge. Pt states would like [employer], if qualifies for home oxygen with exertion. CM to follow. Nisreen MOHR CM
--- NOTE | 2021-11-19 13:44 | PCM.DC.SUM ---
Providers Date of Admission: 11/17/21 Date of Discharge: 11/19/21 Primary Care Physician: Dr. Bobby Duckworth MD Reason For Visit: PNEUMONIA Diagnosis Discharge Diagnosis (1) Pneumonia: Status: Acute Code(s): J18.9 - Pneumonia, unspecified organism Qualifiers: Laterality: right Lung location: lower lobe of lung Pneumonia type: due to unspecified organism Qualified Code(s): J18.9 - Pneumonia, unspecified organism (2) Acute respiratory failure with hypoxia: Status: Acute Code(s): J96.01 - Acute respiratory failure with hypoxia (3) Severe protein-calorie malnutrition: Status: Acute Code(s): E43 - Unspecified severe protein-calorie malnutrition (4) Benign essential HTN: Status: Chronic Code(s): I10 - Essential (primary) hypertension (5) GERD (gastroesophageal reflux disease): Status: Chronic Code(s): K21.9 - Gastro-esophageal reflux disease without esophagitis (6) Rheumatoid arthritis: Status: Chronic Code(s): M06.9 - Rheumatoid arthritis, unspecified (7) Osteoporosis: Status: Chronic Code(s): M81.0 - Age-related osteoporosis without current pathological fracture (8) Osteoarthritis: Status: Chronic Code(s): M19.90 - Unspecified osteoarthritis, unspecified site Medications at Discharge Home Medications amlodipine 5 mg PO DAILY 02/18/19 hydroxychloroquine 200 mg PO DAILY 02/18/19 biotin 5,000 mcg sublingual tablet 5,000 mcg SUBLINGUAL DAILY 03/07/19 cholecalciferol (vitamin D3) 50 mcg (2,000 unit) capsule 2,000 unit PO DAILY 03/07/19 omeprazole 40 mg capsule,delayed release 40 mg PO DAILY 03/07/19 albuterol sulfate 2.5 mg INHALATION Q4H PRN #180 ml 03/13/19 PEP device #1 ea 04/10/19 folic acid 1 mg tablet 2 mg PO BID tab 07/17/19 levothyroxine [Euthyrox] 75 mcg PO DAILY 11/17/21 potassium chloride 20 meq PO DAILY 11/17/21 levofloxacin 750 mg PO DAILY 7 Days #7 tab 11/19/21 Hospital Course Operations None Procedures None Summary of Care Provided Minutes Spent on Discharge: 35 Hospital Course: 71-year-old female with multiple comorbidities who comes in with a 3-day history of progressive shortness of breath associated with chills, cough and sputum production. Patient had hypoxia in the emergency room, she was saturating 85% on room air. Acute sepsis was ruled out on admission. Chest x-ray showed right lower lobe pneumonia. Patient was managed on IV ceftriaxone and azithromycin. She was off oxygen at the time of discharge. She was discharged home on Levaquin to complete 1 week of treatment. She was encouraged to use incentive spirometer. She will follow-up with her primary care doctor and veterinary technician assistant within 1 to 2 weeks. Physical Exam Narrative Physical exam: General: Alert, Oriented x3, Cooperative, No apparent distress, Well developed HEENT: Atraumatic Oral: Moist Mucosa Neck: Supple Lungs: Clear to auscultation Cardiovascular: HS I+II, regular, no murmurs Abdomen: Bowel Sounds Present, Soft, Non Tender Extremities: No edema Medical Records Data Medical Nutrition Assessment Dietitian: Malnutrition Criteria Met Start: 11/18/21 12:00 Freq: Status: Active Protocol: Document 11/18/21 12:00 (Rec: 11/18/21 12:00 [id number]) Nutrition Malnutrition Evidence of Malnutrition Exists Yes Malnutrition (severe): Chronic Evidenced By Suboptimal Energy Intake ( Severe),Weight Loss (Severe) Clinical Problem Chronic Disease or Condition Related Malnutrition Etiology severe, chronic malnutrition r /t inadequate energy intake w/ increased energy needs d/t COPD Signs/Symptoms as evidenced by reported unintentional wt loss of 8.8#/ 9% <1 month; estimated energy intake meeting <75% of estimated energy needs >3 months; severe muscle wasting, fat loss in upper extremities ; prominent clavicles, acromion process; wasting evident scapula, temples, and orbital areas per physical exam Status Active Problem Recommendation Dietitian Recommendations/Changes continue regular diet; continue 120mL ensure enlive 4x/day w/ medpass as tolerated ; will try 240mL ensure clear w/ meals and will fortify foods when possible d/t malnutrition Weight / BMI Weight Weight: 39.1 kg Body Mass Index (BMI) 16.2 ABG / Lab / Microbiology Data Result Diagrams: 11/18/21 05:50 11/18/21 05:50 Laboratory: Laboratory Results - last 24 hr 11/17/21 15:55: Diff Path Review Reviewed 11/18/21 05:50: Diff Path Review Reviewed Microbiology: Microbiology 11/18/21 03:20 Sputum, Expectorated/Coughed Gram Stain - Final 11/18/21 03:20 Sputum, Expectorated/Coughed Respiratory Culture - Preliminary Appears to be normal respiratory elin. Further studies to follow. 11/17/21 22:00 Urine, Clean Catch Streptococcus pneumoniae Antigen (M - Final 11/17/21 15:40 Mucosa - Nose Influenza Types A,B Direct FA (GARRETT) - Final 11/17/21 15:40 Nasal Secretion SARS-CoV-2 Antigen (Rapid) - Final D/C Instructions Discharge Diet: 2000 mg Sodium Diet Meaningful Use Info Meaningful Use Diagnoses (Choose all that apply): None applicable Discharge Plan Admission Admit Date/Time: 11/17/21 17:11 Primary Reason for Your Visit: Pneumonia Attending Provider: Regina Nickerson Primary Care Provider: Bobby Duckworth Discharge Orders/Prescriptions Prescriptions: New levofloxacin 750 mg tablet 750 mg PO DAILY 7 Days Qty: 7 RF: 0 Continued omeprazole 40 mg capsule,delayed release(DR/EC) 40 mg PO DAILY RF: 0 biotin 5,000 mcg tablet, sublingual 5,000 mcg SUBLINGUAL DAILY RF: 0 cholecalciferol (vitamin D3) 2,000 unit capsule 2,000 unit PO DAILY RF: 0 folic acid 1 mg tablet 2 mg PO BID RF: 0 amlodipine 5 MG tablet 5 mg PO DAILY RF: 0 hydroxychloroquine 200 MG tablet 200 mg PO DAILY RF: 0 levothyroxine [Euthyrox] 75 mcg tablet 75 mcg PO DAILY RF: 0 potassium chloride 20 mEq tablet extended release 20 meq PO DAILY RF: 0 albuterol sulfate 2.5 mg /3 mL (0.083 %) solution for nebulization 2.5 mg inhalation Q4H PRN (Reason: shortness of breath or wheezing) Qty: 180 RF: 3 No Action (DME) PEP device 0 .Route .MEDSUPPLY Qty: 1 RF: 0 Referrals / Follow Up: Bobby Duckworth MD [Primary Care Provider] - 11/26/21 9:20 am Disposition Disposition (needs filled in before D/C Order can be placed): Home, Self Care Charges/Coding Visit Charges Inpatient E&M: 09034 Disch Hosp
== END 2021-11-19 14:56 | disposition home or self-care (01) | DRG 193 ==
LOC: ED 17:08 → PCU 17:22
PROVIDERS: Emergency Provider Emergency Medicine; PCP Family Medicine; Visit Provider Internal Medicine
DX: J15.9 Unspecified bacterial pneumonia (principal); J96.01 Acute respiratory failure with hypoxia; E43 Unspecified severe protein-calorie malnutrition; Z68.1 Body mass index [BMI] 19.9 or less, adult; J43.9 Emphysema, unspecified; J47.9 Bronchiectasis, uncomplicated; M06.9 Rheumatoid arthritis, unspecified; E87.6 Hypokalemia; I10 Essential (primary) hypertension; E78.5 Hyperlipidemia, unspecified; M19.90 Unspecified osteoarthritis, unspecified site; K21.9 Gastro-esophageal reflux disease without esophagitis; E03.9 Hypothyroidism, unspecified; F17.200 Nicotine dependence, unspecified, uncomplicated; M81.0 Age-related osteoporosis without current pathological fracture; Z79.899 Other long term (current) drug therapy
CPT/HCPCS: 36415; 71045; 80048; 80053; 83605; 85025; 87040; 87070; 87205; 87426; 87449; 87804; 93005; 94640; 94667; 94668; 97802; 99251; 99285; J7030; J7050; A4216; G0463; J0696

== ENCOUNTER 2021-11-26 10:12 | Outpatient (CLI) | payer MEDICARE, SELFPAY ==
[2021-11-26 12:53] LABS: Anion Gap 7 (5-15); BUN 14 mg/dL (7-18); BUN/Creat Ratio 20.7 RATIO (10-20); Calcium,Total 9.3 mg/dL (8.5-10.1); Chloride 102 mmol/L (98-107); Cholesterol 161 mg/dL (200); Creatinine, Serum 0.68 mg/dL (0.55-1.02); EST Glomerular Filtration Rate 92 mL/min (>60); Est Glom Filt Rate - Afr Amer 111 mL/min (>60); Free T3 2.4 pg/mL (2.18-3.98); Glucose 82 mg/dL (74-106); High Density Lipoprotein 53 mg/dL; Potassium 3.6 mmol/L (3.5-5.1); Sodium Level 138 mmol/L (136-145); T4 Free Direct 1.56 ng/dL (0.76-1.46); Thyroid Stim Hormone (TSH) 2.38 uIU/mL (0.358-3.74); Triglycerides 66 mg/dL; Very Low Density Lipoprotein 13 mg/dL (5-40)
== END 2021-11-26 23:59 | disposition home or self-care (01) ==
LOC: MFPLAB 10:15
PROVIDERS: PCP Family Medicine; Referring Provider Family Medicine; Visit Provider Family Medicine
DX: I10 Essential (primary) hypertension (principal); E03.9 Hypothyroidism, unspecified
CPT/HCPCS: 36415; 80048; 80061; 84439; 84443; 84481

== ENCOUNTER → 2022-06-01 | Outpatient (CLI) | payer MEDICARE, SELFPAY ==
[2022-06-01 17:58] LABS: Anion Gap 8 (5-15); BUN 11 mg/dL (7-18); BUN/Creat Ratio 17.2 RATIO (10-20); Calcium,Total 9.2 mg/dL (8.5-10.1); Chloride 100 mmol/L (98-107); Cholesterol 165 mg/dL (200); Creatinine, Serum 0.64 mg/dL (0.55-1.02); EST Glomerular Filtration Rate 97 mL/min (>60); Est Glom Filt Rate - Afr Amer 118 mL/min (>60); Free T3 4.2 pg/mL (2.18-3.98); Glucose 78 mg/dL (74-106); High Density Lipoprotein 85 mg/dL; Potassium 4.1 mmol/L (3.5-5.1); Sodium Level 137 mmol/L (136-145); T4 Free Direct 1.71 ng/dL (0.76-1.46); Thyroid Stim Hormone (TSH) 1.02 uIU/mL (0.358-3.74); Triglycerides 61 mg/dL; Very Low Density Lipoprotein 12 mg/dL (5-40)
== END | disposition home or self-care (01) ==
LOC: MFPLAB 14:14
PROVIDERS: PCP Family Medicine; Referring Provider Family Medicine; Visit Provider Family Medicine
DX: E03.9 Hypothyroidism, unspecified (principal); I10 Essential (primary) hypertension
CPT/HCPCS: 36415; 80048; 80061; 84439; 84443; 84481

== ENCOUNTER 2022-07-19 16:12 | Emergency (ER) | payer MEDICARE, SELFPAY ==
[2022-07-19 16:15] VITALS: BP 134/67; PULSE 103; RESP 18; TEMP 36.7; O2SAT 98; BMI 14.7
[2022-07-19 16:32] VITALS: PULSE 100; RESP 18; O2SAT 96
--- NOTE | 2022-07-19 16:48 | EX.ED.VIS.UR ---
HPI HPI - URI History of Present Illness Chief Complaint: Cough Narrative Narrative: 71-year-old female presenting with cough. This is not productive of sputum. She has subjective fevers at home but states she does not have anything to check her temperature. She is alternating Tylenol and ibuprofen. She has chills but no myalgias. She has generalized fatigue. She complains of intermittent left rib pain. This is worse with movement and coughing. She does states she has a history of pneumonia. She called Dr. Duckworth's office yesterday and was prescribed a Z-Luca. She states he took 1 dose yesterday and 1 dose today. When she called the doctor's office and Dr. Duckworth is out today. She was told to come to the emergency room. Patient states that typically Levaquin would help her no periods with pneumonia. ROS ROS ED Constitutional Constitutional ED: Reports chills and subjective Eyes Eyes: Denies change in vision or diplopia ENT ENT ED: Reports rhinorrhea; Denies sore throat Cardiovascular Cardiovascular: Reports other Details: Intermittent left rib pain ; Denies palpitations Respiratory/Chest Respiratory/Chest: Denies cough or dyspnea Gastrointestinal Gastrointestinal: Denies abdominal pain, nausea or vomiting Genitourinary Genitourinary ED: Denies dysuria or hematuria Musculoskeletal Musculoskeletal: Denies arthralgias, back pain or myalgias Integumentary Denies abscess or Abrasions Neurologic Neurologic: Denies headache(s) or paresthesias Psychiatric Psychiatric: Denies anxiety or depression [facility] Medical History Asthma Bronchitis Emphysema lung GERD (gastroesophageal reflux disease) Hyperlipidemia Hypertension Hypothyroid inflammatory lung disease Non-smoker Osteoarthritis Osteoporosis Pleural effusion Pneumonia Pulmonary nodule Rheumatoid arthritis Home Medications amlodipine 5 mg tablet 5 mg PO DAILY 02/18/19 [History Last Taken 11/16/21] hydroxychloroquine 200 mg tablet 200 mg PO DAILY 02/18/19 [History Last Taken 11/15/21] biotin 5,000 mcg sublingual tablet 5,000 mcg sublingual DAILY 03/07/19 [History Last Taken 11/15/21] cholecalciferol (vitamin D3) 50 mcg (2,000 unit) capsule 2,000 unit PO DAILY 03/07/19 [History Last Taken 11/15/21] omeprazole 40 mg capsule,delayed release 40 mg PO DAILY 03/07/19 [History Last Taken 11/15/21] albuterol sulfate 2.5 mg/3 mL (0.083 %) solution for nebulization 2.5 mg (3 mL) inhalation Q4H PRN shortness of breath or wheezing #180 mL 03/13/19 [Rx Last Taken Unknown] PEP device #1 ea 04/10/19 [Rx Last Taken Unknown] folic acid 1 mg tablet 2 mg PO BID 07/17/19 [History Last Taken 11/15/21] levothyroxine 75 mcg tablet (Euthyrox) 75 mcg PO DAILY THYROID 11/17/21 [History Last Taken 11/16/21] potassium chloride 20 mEq tablet,extended release 20 meq PO DAILY SUPPLEMENT 11/17/21 [History Last Taken 11/15/21] levofloxacin 750 mg tablet 750 mg PO DAILY 7 days #7 tabs 11/19/21 [Rx Last Taken Unknown] levofloxacin 500 mg tablet 500 mg PO DAILY #6 tabs 07/19/22 [Rx Last Taken Unknown] Allergy/AdvReac Type Severity Reaction Status Date / Time promethazine [From Phenergan] AdvReac Nausea/Vom/ Verified 07/19/22 16:15 Diarrhea Family History Father COPD (chronic obstructive pulmonary disease) smoker Mother COPD (chronic obstructive pulmonary disease) smoker Surgical History History of appendectomy Social History Smoking Status: Never smoker EXAM Physical Exam Const Vital Signs: 07/19/22 16:15 07/19/22 16:28 07/19/22 16:32 Temperature 98.0 F Temperature Source Temporal Pulse Rate 103 H 100 Respiratory Rate 18 18 Respiratory Effort Normal Respiratory Depth Normal Respiratory Pattern Normal Blood Pressure 134/67 H Blood Pressure Mean 89 Pulse Ox 98 96 Oxygen Delivery Method Room Air Room Air Room Air Positive well nourished General Appearance ED: NAD; Negative for pallor HEENT Reports moist mucous membranes normocephalic Throat: posterior oropharynx normal Eyes PERRL and EOMs intact bilaterally General Eye ED: Negative for pale conjunctiva or scleral icterus Neck no lymphadenopathy, supple and no meningeal signs Resp normal respiratory effort and clear to auscultation bilaterally Auscultation: Negative for rales, rhonchi or wheezes Cardio Rate: regular rate Rhythm: regular rhythm GI non-tender Neuro oriented x3 and CN's II-XII intact bilaterally Sensorium / Orientation: alert Psych mental status grossly normal Skin General Skin Exam: Negative for jaundice or pallor MDM MDM MDM Narrative Medical decision making narrative: Patient presenting with concern for pneumonia. Is on day 2 of azithromycin. She states she still having a cough. Has a history of pneumonia. She states that Levaquin typically helps. Vital signs are stable and she is afebrile. She is not tachypneic, tachycardic, hypoxic. She is afebrile. She has no reported history of fever although she has subjective fevers. No nausea or vomiting. She does admit to chills without body aches. COVID testing is negative. Chest x-ray my interpretation shows right upper lobe and left lower lobe pneumonia. This point I will change her to Levaquin. First dose given in ER. She is counseled to return if her symptoms are worsening. Follow-up with PCP to ensure resolution. Impression: 1. left rib pain 2. Bilateral pneumonia Lab Data Attestation: I reviewed the patient's lab results. Radiography Diagnostic Testing: Clinical Impression(s) from Imaging Studies Chest X-Ray 07/19/22 17:00 IMPRESSION: Mild hazy opacities suspicious for pneumonia. Electronically Signed: Megan Meng MD at 17:35 EDT Reading Location ID and State: [id number] / Tel , Service support , Discharge Plan Triage Chief Complaint: Cough ED Provider: Yeison Sagastume Dx/Rx/DC Orders Instructions: ED Pneumonia (Adult) Prescriptions: New levofloxacin 500 mg tablet 500 mg PO DAILY Qty: 6 0RF No Action omeprazole 40 mg capsule,delayed release(DR/EC) 40 mg PO DAILY biotin 5,000 mcg tablet, sublingual 5,000 mcg SUBLINGUAL DAILY cholecalciferol (vitamin D3) 2,000 unit capsule 2,000 unit PO DAILY (DME) PEP device 0 .Route .MEDSUPPLY Qty: 1 0RF Rx Instructions: with training folic acid 1 mg tablet 2 mg PO BID amlodipine 5 MG tablet 5 mg PO DAILY hydroxychloroquine 200 MG tablet 200 mg PO DAILY levothyroxine [Euthyrox] 75 mcg tablet 75 mcg PO DAILY potassium chloride 20 mEq tablet extended release 20 meq PO DAILY levofloxacin 750 mg tablet 750 mg PO DAILY 7 Days Qty: 7 0RF albuterol sulfate 2.5 mg /3 mL (0.083 %) solution for nebulization 2.5 mg inhalation Q4H PRN (Reason: shortness of breath or wheezing) Qty: 180 3RF Primary Care Provider: Bobby Duckworth Referrals: Bobby Duckworth MD [Primary Care Provider] - Disposition Disposition: Home, Self Care
--- NOTE | 2022-07-19 17:00 | RAD_ITS ---
STUDY: X-RAY CHEST REASON FOR EXAM: Female, 71 years old. cough TECHNIQUE: PA and lateral views of the chest. COMPARISON: 11/17/2021. FINDINGS: No pleural effusion. Mild hazy opacity in the right upper lobe and left lower lobe concerning for pneumonia. Normal size heart. Normal mediastinum and michael. Normal visualized pulmonary arteries. Normal visualized aortic arch and descending thoracic aorta. Normal visualized thoracic spine. Normal visualized ribs, clavicles, and shoulders. There is no demonstrated abnormality of the visualized soft tissue structures of the upper abdomen. RAD/Chest PA and Lateral IMPRESSION: Mild hazy opacities suspicious for pneumonia. Electronically Signed: Megan Meng MD at 17:35 EDT Reading Location ID and State: [id number] / Tel , Service support ,
[2022-07-19] MEDS: levoFLOXacin 750 MG Tablet PO (18:20)
[2022-07-19 18:23] VITALS: BP 138/82; PULSE 79; RESP 15; O2SAT 97
== END 2022-07-19 18:24 | disposition home or self-care (01) ==
PROVIDERS: Emergency Provider Student in an Organized Health Care Education/Training Program; PCP Family Medicine; Visit Provider Student in an Organized Health Care Education/Training Program
DX: J18.9 Pneumonia, unspecified organism (principal); R07.81 Pleurodynia; I10 Essential (primary) hypertension; E78.5 Hyperlipidemia, unspecified; E03.9 Hypothyroidism, unspecified; Z79.899 Other long term (current) drug therapy
CPT/HCPCS: 71046; 87811; 99282

== ENCOUNTER → 2022-11-30 | Outpatient (CLI) | payer MEDICARE, SELFPAY ==
[2022-11-30 18:59] LABS: Anion Gap 8 (5-15); BUN 12 mg/dL (7-18); BUN/Creat Ratio 17.4 RATIO (10-20); Calcium,Total 9.2 mg/dL (8.5-10.1); Chloride 101 mmol/L (98-107); Cholesterol 166 mg/dL (200); Creatinine, Serum 0.69 mg/dL (0.55-1.02); EST Glomerular Filtration Rate 89 mL/min (>60); Est Glom Filt Rate - Afr Amer 108 mL/min (>60); Free T3 3.2 pg/mL (2.18-3.98); Glucose 99 mg/dL (74-106); High Density Lipoprotein 77 mg/dL; Potassium 3.8 mmol/L (3.5-5.1); Sodium Level 138 mmol/L (136-145); T4 Free Direct 1.17 ng/dL (0.76-1.46); Thyroid Stim Hormone (TSH) 3.13 uIU/mL (0.358-3.74); Triglycerides 67 mg/dL; Very Low Density Lipoprotein 13 mg/dL (5-40)
== END | disposition home or self-care (01) ==
LOC: MFPLAB 13:58
PROVIDERS: PCP Family Medicine; Referring Provider Family Medicine; Visit Provider Family Medicine
DX: I10 Essential (primary) hypertension (principal); E03.9 Hypothyroidism, unspecified
CPT/HCPCS: 36415; 80048; 80061; 84439; 84443; 84481

== ENCOUNTER → 2023-03-17 | Outpatient (CLI) | payer MEDICARE, SELFPAY ==
[2023-03-17 11:55] LABS: Anion Gap 4 (5-15); BUN 13 mg/dL (7-18); BUN/Creat Ratio 19.5 RATIO (10-20); Calcium,Total 9.1 mg/dL (8.5-10.1); Chloride 105 mmol/L (98-107); Creatinine, Serum 0.67 mg/dL (0.55-1.02); EST Glomerular Filtration Rate 93 mL/min (>60); Est Glom Filt Rate - Afr Amer 113 mL/min (>60); Glucose 92 mg/dL (74-106); Potassium 3.8 mmol/L (3.5-5.1); Sodium Level 138 mmol/L (136-145); Thyroid Stim Hormone (TSH) 3.58 uIU/mL (0.358-3.74)
== END | disposition home or self-care (01) ==
LOC: MFPLAB 08:52
PROVIDERS: PCP Family Medicine; Visit Provider Family Medicine
DX: I10 Essential (primary) hypertension (principal); E03.9 Hypothyroidism, unspecified
CPT/HCPCS: 36415; 80048; 84443

== ENCOUNTER → 2023-06-01 | Outpatient (CLI) | payer MEDICARE, SELFPAY ==
[2023-06-01 18:29] LABS: ALB/GLOB Ratio 0.8 RATIO (0.9-2.4); AST(SGOT) 21 U/L (15-37); Alanine Aminotransfer ALT/SGPT 25 U/L (13-56); Albumin, Serum 3.7 g/dL (3.2-5.0); Alkaline Phosphatase 110 U/L (45-117); Anion Gap 4 (5-15); BUN 12 mg/dL (7-18); BUN/Creat Ratio 11.1 RATIO (10-20); Calcium,Total 9.3 mg/dL (8.5-10.1); Chloride 103 mmol/L (98-107); Cholesterol 171 mg/dL (200); Creatinine, Serum 1.08 mg/dL (0.55-1.02); EST Glomerular Filtration Rate 53 mL/min (>60); Est Glom Filt Rate - Afr Amer 64 mL/min (>60); Free T3 2.9 pg/mL (2.18-3.98); Globulin 4.4 g/dL (2.2-4.2); Glucose 91 mg/dL (74-106); High Density Lipoprotein 94 mg/dL; Potassium 3.8 mmol/L (3.5-5.1); Protein, Total 8.1 g/dL (6.4-8.2); Sodium Level 137 mmol/L (136-145); Thyroid Stim Hormone (TSH) 2.91 uIU/mL (0.358-3.74); Triglycerides 51 mg/dL; Very Low Density Lipoprotein 10 mg/dL (5-40)
== END | disposition home or self-care (01) ==
LOC: MTLAB 14:37
PROVIDERS: PCP Family Medicine; Visit Provider Family Medicine
DX: I10 Essential (primary) hypertension (principal); E03.9 Hypothyroidism, unspecified
CPT/HCPCS: 36415; 80053; 80061; 84439; 84443; 84481

== ENCOUNTER → 2024-06-27 | Outpatient (CLI) | payer MEDICARE, SELFPAY ==
[2024-06-27 11:02] LABS: Anion Gap 7 (5-15); BUN 12 mg/dL (7-18); BUN/Creat Ratio 19.2 RATIO (10-20); Calcium,Total 9.7 mg/dL (8.5-10.1); Chloride 104 mmol/L (98-107); Creatinine, Serum 0.63 mg/dL (0.55-1.02); EST Glomerular Filtration Rate 100 mL/min (>60); Est Glom Filt Rate - Afr Amer 120 mL/min (>60); Glucose 99 mg/dL (74-106); Potassium 3.7 mmol/L (3.5-5.1); Sodium Level 140 mmol/L (136-145)
== END | disposition home or self-care (01) ==
LOC: MFPLAB 08:09
PROVIDERS: PCP Family Medicine; Visit Provider Registered Nurse
DX: E87.6 Hypokalemia (principal)
CPT/HCPCS: 36415; 80048

== ENCOUNTER → 2024-08-05 | Outpatient (CLI) | payer MEDICARE, SELFPAY ==
[2024-08-05 18:14] LABS: ALB/GLOB Ratio 0.8 RATIO (0.9-2.4); AST(SGOT) 23 U/L (15-37); Alanine Aminotransfer ALT/SGPT 22 U/L (13-56); Albumin, Serum 3.6 g/dL (3.2-5.0); Alkaline Phosphatase 106 U/L (45-117); Anion Gap 6 (5-15); BUN 16 mg/dL (7-18); BUN/Creat Ratio 27.2 RATIO (10-20); Calcium,Total 9.4 mg/dL (8.5-10.1); Chloride 104 mmol/L (98-107); Creatinine, Serum 0.59 mg/dL (0.55-1.02); EST Glomerular Filtration Rate 107 mL/min (>60); Est Glom Filt Rate - Afr Amer 129 mL/min (>60); Free T3 3.7 pg/mL (2.18-3.98); Globulin 4.6 g/dL (2.2-4.2); Glucose 84 mg/dL (74-106); Potassium 3.9 mmol/L (3.5-5.1); Protein, Total 8.2 g/dL (6.4-8.2); Sodium Level 138 mmol/L (136-145); T4 Free Direct 1.25 ng/dL (0.76-1.46)
[2024-08-07 05:08] LABS: Prealbumin 17 mg/dL (9-32)
== END | disposition home or self-care (01) ==
LOC: MFPLAB 15:38
PROVIDERS: PCP Family Medicine; Visit Provider Family Medicine
DX: E03.9 Hypothyroidism, unspecified (principal); E63.9 Nutritional deficiency, unspecified
CPT/HCPCS: 36415; 80053; 84134; 84439; 84443; 84481

== ENCOUNTER → 2025-02-03 | Outpatient (CLI) | payer MEDICARE, SELFPAY ==
[2025-02-03 18:10] LABS: AST(SGOT) 24 U/L (<=31); Alanine Aminotransfer ALT/SGPT 12 U/L (<=34); Albumin, Serum 3.9 g/dL (3.4-4.8); Alkaline Phosphatase 128 U/L (35-104); Anion Gap 10 (5-15); BUN 12 mg/dL (4-19); BUN/Creat Ratio 21.5 RATIO (10-20); Calcium,Total 9.5 mg/dL (7.6-11.0); Carbon Dioxide 27.1 mmol/L (21.0-32.0); Chloride 102 mmol/L (98-108); Cholesterol 163 mg/dL (<=200); Creatinine, Serum 0.57 mg/dL (0.70-1.20); EST Glomerular Filtration Rate 97 (>60); Free T3 2.5 pg/mL (2.18-3.98); Globulin 4.1 g/dL (2.2-4.2); Glucose 78 mg/dL (70-99); High Density Lipoprotein 77 mg/dL; Low Density Lipoprotein Calc. 73 mg/dL; Potassium 4.2 mmol/L (3.3-5.1); Sodium Level 139 mmol/L (133-145); Total Bilirubin 0.24 mg/dL (0.00-1.30); Triglycerides 66 mg/dL; Very Low Density Lipoprotein 13 mg/dL (5-40); cholesterol:hdl ratio screen 2.11
== END | disposition home or self-care (01) ==
LOC: MFPLAB 14:49
PROVIDERS: PCP Family Medicine; Referring Provider Family Medicine; Visit Provider Family Medicine
DX: I10 Essential (primary) hypertension (principal); E03.9 Hypothyroidism, unspecified
CPT/HCPCS: 36415; 80053; 80061; 84439; 84443; 84481

== ENCOUNTER → 2025-08-04 | Outpatient (CLI) | payer MEDICARE, SELFPAY ==
[2025-08-04 18:15] LABS: Anion Gap 10 (5-15); BUN 12 mg/dL (4-19); BUN/Creat Ratio 22.0 RATIO (10-20); Calcium,Total 9.5 mg/dL (7.6-11.0); Carbon Dioxide 28.5 mmol/L (21.0-32.0); Chloride 102 mmol/L (98-108); Free T3 2.7 pg/mL (2.18-3.98); Glucose 82 mg/dL (70-99); Potassium 3.8 mmol/L (3.3-5.1)
== END | disposition home or self-care (01) ==
LOC: MFPLAB 14:31
PROVIDERS: PCP Family Medicine; Visit Provider Family Medicine
DX: E03.9 Hypothyroidism, unspecified (principal); I10 Essential (primary) hypertension
CPT/HCPCS: 36415; 80048; 84439; 84443; 84481